=== PATIENT | female | born 1990 | race Caucasian/White ===

== ENCOUNTER 2016-07-04 07:39 | Emergency (ER) | payer OTHER ==
--- NOTE | 2016-07-04 09:46 | RAD ---
INDICATION: Right upper quadrant pain COMPARISON: None TECHNIQUE: Longitudinal and transverse scans of the right upper quadrant were obtained. Doppler interrogation of the hepatic and portal venous system was performed. FINDINGS: Liver: The liver is normal in size and echogenicity. There are no focal masses. The liver measures 12.6 cm in cephalocaudal dimension. Vessels: There is normal hepatic and portal venous flow. Bile ducts: There is no evidence of intrahepatic or extrahepatic ductal dilatation. The common duct measures 0.4 cm. Gallbladder: The sonographic appearance of the gallbladder is normal. There is no evidence of cholelithiasis, thickening of the gallbladder wall, or pericholecystic fluid. Pancreas: The visualized pancreas appears normal. Evaluation is limited due to bowel gas. Right kidney: The right kidney is normal in size and echogenicity. There are no masses or calculi. There is no evidence of hydronephrosis. The right kidney measures 11.7 x 4.5 x 6.0 cm. IVC and aorta: The aorta and superior vena cava appear normal. Fluid: There is no ascites. Other: None. IMPRESSION: NEGATIVE EXAMINATION.
--- NOTE | 2016-07-04 10:05 | UC ---
Abdominal Pain Female HPI - History of Current Complaint Chief Complaint: UCAbdominalPain Stated Complaint: ABDOMINAL PAIN Time Seen by Provider: 07/04/16 08:46 Hx Last Menstrual Period: 06/29/16 Allergies/Adverse Reactions: Allergies Allergy/AdvReac Type Severity Reaction Status Date / Time Ibuprofen Allergy Intermediate Difficulty Verified 07/04/16 07:49 Breathing Home Medications: Home Medications ALPRAZolam TAB* [Xanax TAB*] 0.5 mg PO TID PRN 07/04/16 [History Confirmed 07/04] Cholecalciferol TAB* [Vitamin D TAB*] 1,000 unit PO DAILY 07/04/16 [History Confirmed 07/04/16] Metaxalone TAB* [Skelaxin TAB*] 800 mg PO TID 07/04/16 [History Confirmed ] OLANzapine TAB* [Zyprexa 5 MG TAB*] 5 mg PO DAILY 07/04/16 [History Confirmed ] PMH/Surg Hx/FS Hx/Imm Hx Respiratory History Of: Reports: Asthma - Surgical History Surgical History: None - Social History Alcohol Use: None Substance Use Type: None Smoking Status (MU): Never Smoked Tobacco Physical Exam Vital Signs: Initial Vital Signs Temp 97.7 F 07/04/16 07:43 Pulse 76 07/04/16 07:43 Resp 14 07/04/16 07:43 BP 124/68 07/04/16 07:43 Pulse Ox 98 07/04/16 07:43 Abd Pain Female Course/Dx - Course Course Of Treatment: pt refuses to go to [facility] for evaluation. her mom works at [employer] in [place]. desires to go there. declines ambulance. D/w Dr Paniagua at [facility] signed - Differential Dx/Diagnosis Provider Diagnoses: abdominal pain of uncertain cause Discharge - Discharge Plan Condition: Stable Disposition: AGAINST MEDICAL ADVICE Referrals: Whitney Gallagher NP [Primary Care Provider] -
[2016-07-04 10:10] VITALS: BP 118/63
--- NOTE | 2016-07-04 10:15 | UC ---
Abdominal Pain Female HPI - HPI Summary HPI Summary: 26 yo female with onset of ruq abd pain radiating to back pain constant no fever anorexic no n/v/d no UTI symptoms no vag d/c or itch no dysparuenia has had [place] stools intermittently x 1 month - History of Current Complaint Chief Complaint: UCAbdominalPain Stated Complaint: ABDOMINAL PAIN Time Seen by Provider: 07/04/16 08:46 Hx Last Menstrual Period: 06/29/16 Onset/Duration: Gradual Onset, Lasting Hours Timing: Constant Severity Initially: Moderate Severity Currently: Moderate Pain Intensity: 6 Pain Scale Used: 0-10 Numeric Location: Discrete At: RUQ Radiates to: Back Aggravating Factor(s): Nothing Alleviating Factor(s): Nothing Associated Signs and Symptoms: Positive: Back Pain, Other: - anorexia Allergies/Adverse Reactions: Allergies Allergy/AdvReac Type Severity Reaction Status Date / Time Ibuprofen Allergy Intermediate Difficulty Verified 07/04/16 07:49 Breathing Home Medications: Home Medications ALPRAZolam TAB* [Xanax TAB*] 0.5 mg PO TID PRN 07/04/16 [History Confirmed 07/04] Cholecalciferol TAB* [Vitamin D TAB*] 1,000 unit PO DAILY 07/04/16 [History Confirmed 07/04/16] Metaxalone TAB* [Skelaxin TAB*] 800 mg PO TID 07/04/16 [History Confirmed ] OLANzapine TAB* [Zyprexa 5 MG TAB*] 5 mg PO DAILY 07/04/16 [History Confirmed ] PMH/Surg Hx/FS Hx/Imm Hx Previously Healthy: Yes Respiratory History Of: Reports: Asthma - Surgical History Surgical History: None - Family History Known Family History: Positive: Hypertension - Social History Alcohol Use: None Substance Use Type: None Smoking Status (MU): Never Smoked Tobacco Review of Systems Constitutional: Negative Skin: Negative Eyes: Negative ENT: Negative Respiratory: Negative Cardiovascular: Negative Gastrointestinal: Abdominal Pain Genitourinary: Negative Motor: Negative Neurovascular: Negative Musculoskeletal: Negative Neurological: Negative Psychological: Negative All Other Systems Reviewed And Are Negative: Yes Physical Exam Triage Information Reviewed: Yes Appearance: Well-Appearing, No Pain Distress, Well-Nourished Vital Signs: Initial Vital Signs Temp 97.7 F 07/04/16 07:43 Pulse 76 07/04/16 07:43 Resp 14 07/04/16 07:43 BP 124/68 07/04/16 07:43 Pulse Ox 98 07/04/16 07:43 Vital Signs Reviewed: Yes Eyes: Positive: Conjunctiva Clear ENT: Positive: Hearing grossly normal. Negative: Nasal congestion, Nasal drainage, Trismus, Muffled/hoarse voice Neck: Positive: Supple, Nontender Respiratory: Positive: Lungs clear, Normal breath sounds, No respiratory distress Cardiovascular: Positive: RRR, No Murmur Abdomen Description: Positive: No Organomegaly. Negative: Nontender, CVA Tenderness (R), CVA Tenderness (L), Distended, Hepatomegaly, McBurney's Point Tenderness, Peritoneal Signs, Pulsatile Mass, Splenomegaly Musculoskeletal: Positive: ROM Intact, No Edema Neurological: Positive: Alert Psychological Exam: Normal Skin Exam: Normal Abd Pain Female Course/Dx - Course Course Of Treatment: advised she go to ER for further work up. refused to go to [facility]. wants to go to [facility]. spoke to Dr Fili Rebolledo. Declines EMS - Differential Dx/Diagnosis Provider Diagnoses: abdominal pain of uncertain cause Discharge - Discharge Plan Condition: Stable Disposition: AGAINST MEDICAL ADVICE Referrals: Whitney Gallagher NP [Primary Care Provider] -
== END 2016-07-04 10:10 | disposition left against medical advice (07) ==
LOC: UCCORT 07:39
DX: R10.11 Right upper quadrant pain (principal); Z32.02 Encounter for pregnancy test, result negative; J45.909 Unspecified asthma, uncomplicated; Z88.6 Allergy status to analgesic agent
CPT/HCPCS: 76705; 81003; 84702; 99213; G0463

== ENCOUNTER 2016-09-09 07:27 | Emergency (ER) | payer OTHER ==
--- NOTE | 2016-09-09 07:34 | UC ---
[facility] Dental HPI - HPI Summary HPI Summary: 26 YEAR OLD PRESENTS WITH RIGHT LOWER MOLAR ABSCESS AND FACIAL SWELLING. - History of Current Complaint Stated Complaint: ORAL COMPLAINT Time Seen by Provider: 09/09/16 07:33 Hx Last Menstrual Period: 06/29/16 - Allergies/Home Medications Allergies/Adverse Reactions: Allergies Allergy/AdvReac Type Severity Reaction Status Date / Time Ibuprofen Allergy Intermediate Difficulty Verified 09/09/16 07:38 Breathing Home Medications: Home Medications Clonazepam [Clonazepam Odt] 1 mg PO BID 09/09/16 [History Confirmed 09/09/16] Dicyclomine CAP* [Bentyl CAP*] 20 mg PO QID 09/09/16 [History Confirmed 09/09/16 ] Naproxen Sodium-Diphenhydramin [Aleve PM 220-25 mg] 2 tab PO PRN 09/09/16 [ History] Omeprazole [Prilosec] 20 mg PO BID 09/09/16 [History Confirmed 09/09/16] busPIRone TAB* [Buspar TAB*] 20 mg PO DAILY 09/09/16 [History Confirmed 09/09/16 ] PMH/Surg Hx/FS Hx/Imm Hx - Surgical History Surgical History: None - Family History Known Family History: Positive: Hypertension - Social History Alcohol Use: None Substance Use Type: None Smoking Status (MU): Never Smoked Tobacco Review of Systems Constitutional: Negative Skin: Negative Eyes: Negative ENT: Dental Pain Respiratory: Negative Cardiovascular: Negative Gastrointestinal: Negative Genitourinary: Negative Motor: Negative Neurovascular: Negative Musculoskeletal: Negative Neurological: Negative Psychological: Negative All Other Systems Reviewed And Are Negative: Yes Physical Exam Triage Information Reviewed: Yes Eye Exam: Normal ENT Exam: Normal Dental: Positive: Abscess @ Neck exam: Normal Neck: Positive: 1 Respiratory Exam: Normal Cardiovascular Exam: Normal Abdominal Exam: Normal Musculoskeletal Exam: Normal Neurological Exam: Normal Psychological Exam: Normal Skin Exam: Normal Dental Complaint Course/Dx - Differential Dx/Diagnosis Provider Diagnoses: RIGHT LOWER MOLAR ABSCESS Discharge - Discharge Plan Condition: Stable Disposition: HOME Prescriptions: Acetaminophen TAB* [Tylenol TAB*] 650 mg PO Q6H PRN #100 tab PRN Reason: Pain (Dental) Amoxicillin/Clavulanate TAB* [Augmentin TAB 875*] 875 mg PO BID #20 tab Chlorhexidine MW 0.12% 473ML* [Peridex Mouth Wash 0.12%*] 473 ml MT TID PC #1 btl Patient Education Materials: Toothache (ED) Referrals: Whitney Gallagher NP [Primary Care Provider] - If Needed
[2016-09-09 07:38] VITALS: BP 118/80
== END 2016-09-09 07:53 | disposition home or self-care (01) ==
LOC: UCCORT 07:27
DX: K04.7 Periapical abscess without sinus (principal); Z88.6 Allergy status to analgesic agent
CPT/HCPCS: 99212; G0463

== ENCOUNTER 2018-06-23 09:20 | Emergency (ER) | payer OTHER ==
[2018-06-23 10:13] VITALS: BP 132/84
--- NOTE | 2018-06-23 10:14 | UC ---
General HPI - HPI Summary HPI Summary: 28 -year-old female with approximately 4-5 bouts of diarrhea per day over the past 3 days. Denies any vomiting or fever. She does not drink well water. Her family members are ill, and no travel outside the [place]. - History of Current Complaint Chief Complaint: UCGI Stated Complaint: DIARRHEA,NAUSEA, HEADACHE Time Seen by Provider: 06/23/18 10:03 Hx Obtained From: Patient Hx Last Menstrual Period: 06/23/18 Onset/Duration: Sudden Onset Timing: Intermittent Episodes Lasting: Onset Severity: Moderate Current Severity: Mild Pain Intensity: 7 Associated Signs & Symptoms: Positive: Abdominal Pain - Abdominal cramping just prior to bouts of diarrhea., Dizziness - Patient states mild dizziness at times. She has nausea so she has not been drinking very many fluids over the past 3 days., Diarrhea, Nausea - Allergy/Home Medications Allergies/Adverse Reactions: Allergies Allergy/AdvReac Type Severity Reaction Status Date / Time No Known Allergies Allergy Verified 06/23/18 10:12 Home Medications: Home Medications Atomoxetine HCl [Atomoxetine] 60 mg PO DAILY 06/23/18 [History Confirmed ] Metformin HCl 850 mg PO BID 06/23/18 [History Confirmed 06/23/18] Vortioxetine Hydrobromide [Brintellix] 10 mg PO DAILY 06/23/18 [History Confirmed 06/23/18] buPROPion HCl [Bupropion Xl] 450 mg PO DAILY 06/23/18 [History Confirmed ] PMH/Surg Hx/FS Hx/Imm Hx Previously Healthy: Yes - Surgical History Surgical History: None - Family History Known Family History: Positive: Hypertension - Social History Occupation: Employed Full-time Lives: With Family Alcohol Use: None Substance Use Type: None Smoking Status (MU): Never Smoked Tobacco Review of Systems All Other Systems Reviewed And Are Negative: Yes Gastrointestinal: Positive: Diarrhea, Nausea, Other - Abdominal cramping just prior to bouts of diarrhea however does not have any specific abdominal pain. Is Patient Immunocompromised?: No Physical Exam Triage Information Reviewed: Yes Appearance: Well-Appearing, No Pain Distress, Well-Nourished Vital Signs: Initial Vital Signs Temp 97.3 F 06/23/18 10:05 Pulse 95 06/23/18 10:05 Resp 17 06/23/18 10:05 BP 132/84 06/23/18 10:05 Pulse Ox 99 06/23/18 10:05 Vital Signs Reviewed: Yes Eye Exam: Normal ENT: Positive: Hearing grossly normal, Pharynx normal, TMs normal, Uvula midline Neck: Positive: Supple, Nontender, No Lymphadenopathy Respiratory: Positive: Lungs clear, Normal breath sounds, No respiratory distress, No accessory muscle use Cardiovascular: Positive: RRR, No Murmur, Pulses Normal, Brisk Capillary Refill Abdomen Description: Positive: Nontender, No Organomegaly, Soft. Negative: Distended, Guarding, Hepatomegaly, Splenomegaly Bowel Sounds: Positive: Present Musculoskeletal Exam: Normal Neurological Exam: Normal Psychological Exam: Normal Skin Exam: Normal Course/Dx - Course Course Of Treatment: Patient has been comfortable here and nontoxic. 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 - Diagnoses Provider Diagnosis: Viral illness Discharge - Sign-Out/Discharge Documenting (check all that apply): Patient Departure All imaging exams completed and their final reports reviewed: No Studies - Discharge Plan Condition: Fair Disposition: HOME Patient Education Materials: Acute Diarrhea (ED) Referrals: Whitney Gallagher NP [Primary Care Provider] - Additional Instructions: Increase fluids, rest, purchase Loperamide as directed. Definite follow-up with your primary care provider by Friday if you are continuing to have diarrhea. - Billing Disposition and Condition Condition: FAIR Disposition: Home - Attestation Statements Provider Attestation: I was available for consult. This patient was seen by the KAYLIE. The patient was not presented to, seen by, or examined by me. -Geraldine
== END 2018-06-23 10:29 | disposition home or self-care (01) ==
LOC: UCCORT 09:20
DX: B34.9 Viral infection, unspecified (principal)
CPT/HCPCS: 99211; G0463

== ENCOUNTER 2018-08-16 19:19 | Emergency (ER) | payer OTHER ==
--- OUTSIDE RECORDS SUMMARY | 2018-08-16 19:49 | XMS REPORT | Continuity of Care Document ---
:1990 External Reference #:[id number] Author Name Kayla Gallagher NP Address [address] [place] [address] Care Team Providers Name Role Phone Kayla Gallagher NP Primary Care Physician Unavailable Payers Date Identification Numbers Payment Provider Subscriber Effective: 2016 Policy Number: [id number] [employer] Group Number: [id number] [address] [address] Group Name: [employer] [place] [address] PayID: [id number] Onset: 2016 Policy Number: [id number] Progressive Cece J Jamel PayID: [id number] [address] [address] [place] [address] Family History Date Family Member(s) Observation Comments Father due to Accident, Motor Vehicle () Father Alcoholism Mother Good Health Children None First Brother Alcoholism First Brother Bipolar Disorder First Brother PTSD Paternal Grandmother Thyroid Disease Paternal Grandmother Cancer, Colon Maternal Grandmother Thyroid Disease Maternal Grandmother Cancer, Skin Second Maternal Aunt S.A.D. 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 [employer] Use Denies alcohol use Tobacco Use Start: Unknown Patient has never smoked Recreational Drug Use Denies Drug Use Smoking Status Reviewed: 10/08/17 Patient has never smoked Exercise Type/Frequency Exercises sporadically physical work at job Additional Info Sexual preference is men and women Allergies, Adverse Reactions, Alerts Active Allergies Reaction Severity Comments Date Ibuprofen 05/02/2015 Medications Active Medications SIG Qnty Indications Ordering Date Provider Sulfamethoxazole/Trim 1 by mouth twice a 10tabs [facility], 08/14/2018 ethoprim DS day PABLO Garza 800-160mg Tablets Fluticasone 2 sprays each 15.8units [facility], 08/14/2018 Propionate nostril 2 times PABLO Garza 50mcg/Act daily Suspension Albuterol Sulfate HFA 2 puffs every 4 54gm J45.40 [facility], 07/20/2018 hours as needed MD Yair 108(90Base) mcg/Act Aerosol Hydrocortisone apply to affected 453.600gm K64.5 [facility], 05/20/2018 2.5% areas twice a day PABLO Garza Ointment Hydrocortisone twice a day x 2 14units K64.5 [facility], 05/20/2018 Acetate weeks PABLO Garza 25mg Suppository Clonazepam 1 po three times a 90tabs F41.9 [facility], 01/12/2018 0.5mg day PABLO Garza Tablets Bupropion HCL ER (SR) 1 by mouth every 30tabs [facility], 10/28/2017 day PABLO Garza 150mg Tablets ER 12HR Bupropion HCL ER (SR) 1 by mouth twice a 60tabs F41.9 [facility], 10/20/2017 day MD Yair 150mg Tablets ER 12HR Moist Heat Pack moist heat heating [facility], 06/18/2017 Pads pad PABLO Garza Return To Work without 1units [facility]03/26/2017 Misc restrictions PABLO Garza Amphetamine-Dextroamp 1 by mouth twice a Unknown hetamine day 20mg Tablets Trintellix 1 by mouth every Unknown 10mg Tablets day Olanzapine 1 by mouth every Unknown 5mg Tablets day Dispers Metformin HCL take one tablet by Unknown 850mg mouth twice a day Tablets History Medications Fluconazole 1 by mouth july 2tabs [facility], 02/10[facility]2018 - 150mg Tablets repeat after 2 days PABLO Garza 07/23/2018 if still symptomatic Amoxicillin 1 by mouth twice a 20tabs H62.4 [facility]01/27/2018 - 875mg Tablets day 2 PABLO Garza 07/23/2018 Ofloxacin (Otic) 5 drops affected QS H62.4 [facility]01/27/2018 - 0.3% ear every day x 7 2 PABLO Garza 07/23/2018 Solution days Bupropion HCL ER 1 by mouth once a 30tabs [facility] 10/24/2017 - (Smoking Det) day PABLO Garza 10/28/2017 150mg Tablets ER 12HR Prednisone 8 tabs day 1 then 35tabs Elliott 10/08/2017 - 5mg Tablets decrease by 1 tab PABLO Garza 10/24/2017 per day x 7 days until all are gone. Nuvaring insert 1 ring 3units N92.6 Margie, 10/08/2017 - 0.12-0.015mg/24HR vaginally every 21 Navpriya, 07/23/2018 Ring days, leave in M.D. place for 3 weeks, remove, and replace with a new ring Prednisone 8 tabs day 1 then 36tabs M12.8 [facility]08/21/2017 - 5mg Tablets decrease by 1 tab 0 MD Yair 08/25/2017 per day x 7 days until all are gone. Aripiprazole 1 po qd 30tabs F33.1 [facility] 08/01/2017 - 30mg Tablets PABLO Garza 10/24/2017 Bupropion HCL ER (SR) 1 by mouth every 30tabs [facility] 08/01/2017 - 150mg day PABLO Garza 10/20/2017 Tablets ER 12HR Bupropion HCL ER (XL) 1 by mouth every 30tabs F41.9 [facility] 08/01/2017 - 300mg day PABLO Garza 10/20/2017 Tablets ER 24HR Loperamide HCL take 2 tabs at 30caps R19.7 [facility]07/22/2017 - 2mg Capsules first loose stool PABLO Garza 10/24/2017 and 1 tab fo every loose stool therafter not to exceed 16mg per 24hours Sulfamethoxazole/Trimeth 1 by mouth twice a 14tabs N30.0 [facility] 2017 - oprim DS day 0 MD Yair 07/22/2017 800-160mg Tablets Phenazopyridine HCL 1 by mouth every 8 14tabs N30.0 [facility]06/26/2017 - 200mg hours as needed 0 MD Yair 07/22/2017 Tablets Alprazolam 1-2 by mouth three 90tabs F41.9 [facility] 06/18/2017 - 0.5mg Tablets times a day as Kayla, PABLO 01/12/2018 needed Ondansetron 1 by mouth q12 hour 10tabs [facility], 06/18/2017 - 8mg Tablets as needed nausea Kayla, PABLO 10/24/2017 Dispers Bupropion HCL ER (XL) 1 by mouth every 30tabs F33.1 [facility], 05/19/2017 - 300mg day Kayla, [employer] 06/20/2017 Tablets ER 24HR Bupropion HCL ER (XL) 1 by mouth every 30tabs F41.9 [facility], 05/19/2017 - 150mg day Kayla, [employer] 08/01/2017 Tablets ER 24HR Aripiprazole 1 by mouth every 30tabs F33.1 [facility], 05/19/2017 - 20mg Tablets day Kayla, [employer] 08/01/2017 Aripiprazole take one and a half 45tabs F33.1 [facility], 05/05/2017 - 10mg Tablets tablets a day PABLO Garza 05/19/2017 Bupropion HCL ER (SR) 2 by mouth every 60tabs F33.1 [facility], 05/05/2017 - 200mg day Kayla, [employer] 05/19/2017 Tablets ER 12HR Bupropion HCL ER (XL) 1 by mouth every F33.1 [facility], 05/05/2017 - 300mg day Kayla, [employer]ER 05/05/2017 Tablets ER 24HR Bupropion HCL ER (SR) 2 by mouth every 60tabs F33.1 [facility], 03/31/2017 - 200mg day Kayla, [employer] 05/05/2017 Tablets ER 12HR Temazepam 1-2 by mouth every 60caps [facility], 03/26/2017 - 15mg Capsules night at bedtime. PABLO Garza 07/23/2018 soda dialyzer checked Bupropion HCL ER (XL) 1 by mouth every 30tabs F33.1 [facility], 03/26/2017 - 300mg day Kayla, PABLO 04/22/2017 Tablets ER 24HR Sulfamethoxazole/Trimeth 1 by mouth twice a 10tabs N92.6 [facility], 2016 - oprim DS day PABLO Garza 03/26/2017 800-160mg Tablets Phenazopyridine HCL 1 by mouth three 9tabs N92.6 [facility] 02/26/2017 - 200mg times a day PABLO Garza 03/26/2017 Tablets Metronidazole 1 applicator full 70gm Elliott 02/07/2017 - 0.75% Gel at bedtime x 5 days PABLO Garza 03/26/2017 Ketoconazole apply to affected 60gm B35.9 [facility] 02/06/2017 - 2% Cream area twice a day x PABLO Garza 03/26/2017 2 weeks Amoxicillin/Clavulanate 1 by mouth twice a 20tabs Arnaldo 12/31/2016 - Potassium day MD Ritesh 02/06/2017 875-125mg Tablets Methylprednisolone as directed dose 1pack Arnaldo 12/31/2016 - 4mg pack MD Ritesh 02/06/2017 Tablets Amoxicillin 1 by mouth twice a 20tabs J02.9 [facility] 12/24/2016 - 875mg Tablets day PABLO Garza 02/06/2017 Out Of Work today J02.9 [facility] 12/24/2016 - Misc PABLO Garza 12/31/2016 Alprazolam 1-2 three times a 90tabs F41.9 [facility] 10/14/2016 - 0.25mg Tablets day as needed PABLO Garza 06/18/2017 Bupropion HCL ER (SR) 1 by mouth at 30tabs F33.1 [facility] 10/14/2016 - 150mg bedtime PABLO Garza 03/26/2017 Tablets ER 12HR Bupropion HCL 1 by mouth once a 60tabs F33.1 [facility] 09/30/2016 - 75mg Tablets day x 1 week then PABLO Garza 10/14/2016 twice a day Vitamin D 2 by mouth every 60tabs [facility] 09/30/2016 - (Cholecalciferol) day PABLO Garza 07/23/2018 1000Unit Tablets Olanzapine 1 by mouth every 30tabs F41.9 [facility] 09/02/2016 - 20mg Tablets day PABLO Garza 09/27/2016 Dispers Buspirone HCL take two tablets by 60tabs [facility] 09/02/2016 - 10mg Tablets mouth every day PABLO Garza 09/27/2016 Buspirone HCL 1 by mouth x3 days 60tabs [facility] 08/19/2016 - 5mg Tablets then increase to 2 PABLO Garza 09/02/2016 by mouthx 3 days then continue increasing by 5 mg q 3day to max of 30mg Return To Work without 1units [facility] 08/19/2016 [facility] PABLO Garza 09/30/2016 Olanzapine 1 po qd 30tabs F41.9 [facility] 08/12/2016 - 15mg Tablets PABLO Garza 09/02/2016 Clonazepam 1 by mouth twice a 60tabs [facility] 08/12/2016 - 1mg Tablets day PABLO Garza 09/27/2016 Dispers Out Of Work from 07/18/16 to Elliott 08/12/2016 - [facility] [place] 08/19/16 PABLO Garza 09/30/2016 Xanax 1 tablet by mouth 90tabs F41.9 [facility] 07/15/2016 - 1mg Tablets three times a day PABLO Garza 08/12/2016 as needed for anxiety Lactulose take 30ml by mouth 946units Elliott 07/15/2016 - 10GM/15ML Solution once daily PABLO Garza 09/27/2016 Gas Relief 0.6ml x qid and at QS Elliott 07/15/2016 - 40mg/0.6ML Liquid bedtime PABLO Garza 09/27/2016 Dicyclomine HCL take two capsules 240caps Elliott 07/15/2016 - 10mg Capsules by mouth four times PABLO Garza 09/27/2016 a day as needed Heating Pad Moist/Dry as directed Elliott 07/06/2016 - Teodoro Size PABLO Garza 09/30/2016 Pads Ondansetron 1 by mouth q12 hour 30tabs [facility] 07/05/2016 - 8mg Tablets as needed nausea PABLO Garza 09/27/2016 Dispers Omeprazole 1 by mouth twice a 60caps [facility] 07/05/2016 - 20mg Capsules DR day PABLO Garza 09/27/2016 Xanax 1 tablet by mouth 90tabs F41.9 [facility], 07/01/2016 - 1mg Tablets three times a day PABLO Garza 07/15/2016 as needed for anxiety Vitamin D take 1 capsule by 12caps Tere 06/26/2016 - (Ergocalciferol) mouth every week MD Lesley 09/27/2016 02843Hgcm Capsules Olanzapine F41.9 [facility] 06/26/2016 - 15mg Tablets Kayla, [employer] 06/26/2016 Olanzapine 1 tablet by mouth 30tabs F41.9 [facility], 06/26/2016 - 10mg Tablets nightly Kayla, [employer] 08/12/2016 Lamotrigine 2 by mouth twice a 60tabs [facility], 04/29/2016 - 25mg Tablets day Kayla, [employer] 06/26/2016 Lamotrigine 1 tablet every day 30tabs [facility], 04/15/2016 - 25mg Tablets Kayla, [employer] 04/29/2016 Xanax 1 by mouth three 90tabs F41.9 [facility], 04/05/2016 - 0.5mg Tablets times a day as Kayla, [employer] 07/01/2016 needed Xanax 1 by mouth three 30tabs F41.9 [facility], 03/29/2016 - 0.25mg Tablets times a day as Kayla, [employer] 10/14/2016 needed Fluoxetine HCL 1 by mouth every 90tabs [facility], 03/29/2016 - 60mg Tablets day Kayla, [employer] 04/15/2016 Fluoxetine HCL (PMDD) 1 by mouth every 30caps [facility], 03/25/2016 - 20mg day Kayla, [employer]ER 03/29/2016 Capsules Clonazepam 1 by mouth twice a 60tabs [facility], 03/23/2016 - 0.25mg Tablets day as needed for Kayla, [employer] 03/23/2016 Dispers anxiety Fluoxetine HCL 1 by mouth every 30caps [facility], 03/23/2016 - 40mg Capsules day Kayla, [employer] 03/29/2016 Metaxalone 1 by mouth three 90tabs M54.6 [facility], 02/07/2016 - 800mg Tablets times a day PABLO Garza 03/13/2016 Prednisone 3 by mouth every 15tabs M54.6 [facility], 02/07/2016 - 20mg Tablets day x 5 days PABLO Garza 03/13/2016 Abilify 1 by mouth every 45tabs F41.9 [facility], 11/16/2015 - 10mg Tablets day PABLO Garza 04/05/2016 Seroquel 1 by mouth every 30tabs [facility], 10/27/2015 - 25mg Tablets day PABLO Garza 01/15/2016 Sulfamethoxazole/Trimeth 1 by mouth twice a 10tabs N30.0 [facility], 2015 - oprim DS day 0 PABLO Garza 01/15/2016 800-160mg Tablets Vitamin D take 1 capsule by 24caps Elliott, 08/23/2015 - (Ergocalciferol) mouth every week PABLO Garza 06/26/2016 [id number] Capsules Azithromycin 2 by mouth every 6tabs [facility], 08/03/2015 - 250mg Tablets day x 1 day then 1 PABLO Garza 08/15/2015 by mouth every day x 4 days Amoxicillin 1 by mouth twice a 14tabs J02.9 [facility], 07/06/2015 - 875mg Tablets day PABLO Garza 08/03/2015 Cymbalta 1 by mouth every 30caps F41.9 [facility], 07/04/2015 - 60mg Caps DR Cesia Garza NP 03/23/2016 Cymbalta 2 by mouth every 60caps F41.9 [facility], 05/30/2015 - 20mg Caps DR Cesia Garza NP 07/04/2015 Cymbalta 1 by mouth every 30caps F41.9 [facility], 05/16/2015 - 30mg Caps DR Cesia Garza NP 05/30/2015 Ondansetron HCL 1 by mouth q12 60tabs F41.9 [facility], 05/16/2015 - 8mg Tablets hours as needed PABLO Garza 01/15/2016 Work out of work 05/16/15 F41.9 [facility], 05/16/2015 - PABLO Garza 08/15/2015 Proventil HFA inhale 2 puffs by 1units Elliott, 05/02/2015 - 108(90Base) mouth every 4 hours PABLO Garza 09/27/2016 mcg/Act Aerosol as needed Naproxen take one tablet by 60tabs Elliott, 05/02/2015 - 500mg Tablets mouth twice a day PABLO Garza 01/15/2016 as needed Cymbalta 1 by mouth every 30caps F41.9 [facility], 05/02/2015 - 20mg Caps DR Cesia Garza NP 05/16/2015 Depo-Provera 150mg intramuscular Unknown - 150mg/ml every 3 months 10/24/2017 Suspension Klonopin F41.9 Unknown - 0.5mg Tablets 01/12/2018 Prednisone 1 by mouth every Unknown - 5mg Tablets day 08/14/2018 Medications Administered in Office Medication SIG Qnty Indications Ordering Provider Date Albuterol Up To 2.5mg & Yair Gallagher MD 07/21/2018 Ipatropium [place] Up To 0.5mg Non-Compd Injection Medroxyprogesterone Acetate, 1MG Nurse Schedule Loc 8 06/23/2017 - Use 150MG For Depo-Provera Injection Medroxyprogesterone Acetate, 1MG Kayla Gallagher, PABLO 12/24/2016 - Use 150MG For Depo-Provera Injection Medroxyprogesterone Acetate, 1MG Nurse Schedule Loc 8 10/03/2016 - Use 150MG For Depo-Provera Injection Medroxyprogesterone Acetate, 1MG Kayla Gallagher, PABLO 06/26/2016 - Use 150MG For Depo-Provera Injection Medroxyprogesterone Acetate, 1MG Kayla Gallagher, PABLO 01/15/2016 - Use 150MG For Depo-Provera Injection Immunizations CPT Code Status Date Vaccine Lot # [id number] Given 03/18/2018 Tdap (Adacel) Ages 7 And Above Only [id number] Given 05/02/2015 Influenza Vac, Quadrivalent, Split, 0.5mL [place] [id number] Given 03/10/2008 Tdap (Adacel) Ages 7 And Above Only [id number] Given 08/11/2007 Gardasil-9 (HPV) Nonavalent 2-[place] [address] Given 05/18/2007 Gardasil-9 (HPV) Nonavalent 2-[place] [address] Given 02/24/2007 Gardasil-9 (HPV) Nonavalent 2-[place] [id number] Refused 08/14/2018 Pneumococcal 23 Immunization Adult Or Immunosuppressed Patient 52328 Refused 01/27/2018 Influenza Vac, Quadrivalent, Split, 0.5mL [place], [place] Use [id number] Refused 10/28/2016 Afluria Or Fluvirin Flu Vac Intramuscular 49111 Refused 07/05/2016 Afluria Or Fluvirin Flu Vac Intramuscular Vital Signs Date Vital Result Comment 08/14/2018 4:10pm Weight 266.00 lb BP Systolic 120 mmHg BP Diastolic 74 mmHg Urine Dipstick - Blood 2+ Urine Dipstick - Protein neg pos nit Urine Dipstick - Glucose neg Urine Dipstick - Leukocytes neg 07/21/2018 3:36pm Body Temperature 98.0 F Weight 266.00 lb Heart Rate 101 /min BP Systolic 130 mmHg BP Diastolic 90 mmHg Respiratory Rate 14 /min Height 67 inches 5'7" O2 % BldC Oximetry 95 % BMI (Body Mass Index) 41.7 kg/m2 07/20/2018 3:53pm Body Temperature 97.7 F Weight 267.00 lb Heart Rate 94 /min BP Systolic 128 mmHg BP Diastolic 74 mmHg Respiratory Rate 17 /min Height 66 inches 5'6" O2 % BldC Oximetry 96 % BMI (Body Mass Index) 43.1 kg/m2 05/20/2018 3:41pm Body Temperature 98.1 F Weight 252.00 lb Heart Rate 109 /min BP Systolic 126 mmHg BP Diastolic 80 mmHg Respiratory Rate 17 /min Height 65 inches 5'5" O2 % BldC Oximetry 98 % BMI (Body Mass Index) 41.9 kg/m2 03/18/2018 3:04pm Body Temperature 97.5 F Weight 253.00 lb Heart Rate 90 /min BP Systolic 122 mmHg BP Diastolic 78 mmHg Respiratory Rate 17 /min Height 65 inches 5'5" BMI (Body Mass Index) 42.1 kg/m2 01/27/2018 4:36pm Body Temperature 98.0 F Weight 245.00 lb Heart Rate 108 /min BP Systolic 140 mmHg BP Diastolic 80 mmHg Respiratory Rate 17 /min Height 65 inches 5'5" BMI (Body Mass Index) 40.8 kg/m2 10/24/2017 11:28am Body Temperature 97.9 F Weight 241.00 lb Heart Rate 83 /min BP Systolic 126 mmHg BP Diastolic 80 mmHg Respiratory Rate 16 /min O2 % BldC Oximetry 98 % 10/08/2017 11:53am Weight 245.00 lb BP Systolic 126 mmHg BP Diastolic 82 mmHg Height 65.25 inches 5'5.25" BMI (Body Mass Index) 40.5 kg/m2 Last Menstrual Period [id number] 08/25/2017 6:13pm Body Temperature 99.1 F Weight 232.00 lb BP Systolic 128 mmHg BP Diastolic 74 mmHg Height 65.25 inches 5'5.25" BMI (Body Mass Index) 38.3 kg/m2 08/21/2017 6:50pm Body Temperature 99.4 F Weight 234.00 lb Heart Rate 112 /min BP Systolic 118 mmHg BP Diastolic 76 mmHg Height 65.25 inches 5'5.25" O2 % BldC Oximetry 98 % BMI (Body Mass Index) 38.6 kg/m2 08/01/2017 10:54am Weight 234.00 lb Heart Rate 84 /min BP Systolic 118 mmHg BP Diastolic 78 mmHg Height 65.25 inches 5'5.25" BMI (Body Mass Index) 38.6 kg/m2 07/22/2017 3:51pm Body Temperature 98.8 F Weight 240.00 lb BP Systolic 138 mmHg BP Diastolic 76 mmHg Height 65.25 inches 5'5.25" BMI (Body Mass Index) 39.6 kg/m2 06/26/2017 6:30pm Body Temperature 99.2 F Weight 234.00 lb BP Systolic 132 mmHg BP Diastolic 80 mmHg Height 65.25 inches 5'5.25" BMI (Body Mass Index) 38.6 kg/m2 Urine Dipstick - Blood 3+ Urine Dipstick - Protein NEGATIVE Urine Dipstick - Glucose NEGATIVE Urine Dipstick - Leukocytes 3+ 06/20/2017 12:25pm Weight 236.00 lb BP Systolic 132 mmHg BP Diastolic 82 mmHg Height 65.25 inches 5'5.25" BMI (Body Mass Index) 39.0 kg/m2 Last Menstrual Period [id number] 06/18/2017 1:30pm Body Temperature 98.9 F Weight 240.00 lb Heart Rate 129 /min BP Systolic 142 mmHg BP Diastolic 92 mmHg Height 65.25 inches 5'5.25" BMI (Body Mass Index) 39.6 kg/m2 Urine Dipstick - Blood 3+ Urine Dipstick - Protein NEGATIVE Urine Dipstick - Glucose NEGATIVE Urine Dipstick - Leukocytes NEGATIVE 05/19/2017 6:15pm Weight 234.00 lb BP Systolic 128 mmHg BP Diastolic 76 mmHg Height 65.25 inches 5'5.25" BMI (Body Mass Index) 38.6 kg/m2 05/05/2017 7:09pm Weight 239.00 lb BP Systolic 116 mmHg BP Diastolic 78 mmHg Height 65.25 inches 5'5.25" BMI (Body Mass Index) 39.5 kg/m2 04/22/2017 11:16am Weight 239.00 lb BP Systolic 128 mmHg BP Diastolic 82 mmHg Height 65.25 inches 5'5.25" BMI (Body Mass Index) 39.5 kg/m2 03/31/2017 4:55pm Weight 240.00 lb BP Systolic 142 mmHg BP Diastolic 86 mmHg Height 65.25 inches 5'5.25" BMI (Body Mass Index) 39.6 kg/m2 03/26/2017 3:20pm Weight 236.00 lb BP Systolic 128 mmHg BP Diastolic 82 mmHg Height 65.25 inches 5'5.25" BMI (Body Mass Index) 39.0 kg/m2 02/26/2017 2:10pm Body Temperature 99.5 F Weight 232.00 lb BP Systolic 122 mmHg BP Diastolic 74 mmHg Height 65.25 inches 5'5.25" BMI (Body Mass Index) 38.3 kg/m2 02/06/2017 11:35am Weight 235.00 lb BP Systolic 124 mmHg BP Diastolic 80 mmHg Height 65.25 inches 5'5.25" BMI (Body Mass Index) 38.8 kg/m2 Urine Dipstick - Blood NEGATIVE Urine Dipstick - Protein NEGATIVE Urine Dipstick - Glucose NEGATIVE Urine Dipstick - Leukocytes NEGATIVE 12/31/2016 8:16am Body Temperature 98.1 F Weight 229.38 lb Heart Rate 101 /min BP Systolic 134 mmHg BP Diastolic 74 mmHg Height 65.25 inches 5'5.25" O2 % BldC Oximetry 99 % BMI (Body Mass Index) 37.9 kg/m2 12/24/2016 10:06am Body Temperature 98.8 F Hcg negative Weight 227.00 lb Heart Rate 70 /min BP Systolic 120 mmHg BP Diastolic 90 mmHg Height 65.25 inches 5'5.25" BMI (Body Mass Index) 37.5 kg/m2 10/28/2016 5:07pm Body Temperature 98.6 F Heart Rate 60 /min BP Systolic 120 mmHg BP Diastolic 60 mmHg Height 65.25 inches 5'5.25" 10/14/2016 4:46pm Weight 234.00 lb BP Systolic 124 mmHg BP Diastolic 80 mmHg Height 65.25 inches 5'5.25" BMI (Body Mass Index) 38.6 kg/m2 09/30/2016 6:59pm Weight 243.00 lb BP Systolic 128 mmHg BP Diastolic 84 mmHg Height 65.25 inches 5'5.25" BMI (Body Mass Index) 40.1 kg/m2 09/27/2016 4:15pm Weight 243.00 lb Heart Rate 76 /min BP Systolic 118 mmHg BP Diastolic 74 mmHg Height 65.25 inches 5'5.25" BMI (Body Mass Index) 40.1 kg/m2 09/02/2016 4:21pm Body Temperature 99.2 F Heart Rate 88 /min BP Systolic 130 mmHg BP Diastolic 70 mmHg Height 65.25 inches 5'5.25" 08/19/2016 2:30pm Body Temperature 98.5 F Heart Rate 84 /min BP Systolic 114 mmHg BP Diastolic 70 mmHg Height 65.25 inches 5'5.25" 08/12/2016 2:21pm Body Temperature 99.1 F Weight 241.00 lb Heart Rate 64 /min BP Systolic 120 mmHg BP Diastolic 80 mmHg Height 65.25 inches 5'5.25" BMI (Body Mass Index) 39.8 kg/m2 07/15/2016 1:40pm Body Temperature 99.2 F Weight 234.00 lb BP Systolic 142 mmHg BP Diastolic 986 mmHg Height 65.25 inches 5'5.25" BMI (Body Mass Index) 38.6 kg/m2 07/06/2016 10:31am Weight 232.00 lb BP Systolic 112 mmHg BP Diastolic 74 mmHg Height 65.25 inches 5'5.25" BMI (Body Mass Index) 38.3 kg/m2 07/05/2016 11:42am Body Temperature 98.3 F Weight 232.00 lb Heart Rate 84 /min BP Systolic 120 mmHg BP Diastolic 74 mmHg BP Systolic Lying Down 108 mmHg p 64 BP Diastolic Lying Down 86 mmHg p 64 BP Systolic Sitting 124 mmHg p 76 BP Diastolic Sitting 82 mmHg p 76 BP Systolic Standing 110 mmHg p 80 BP Diastolic Standing 72 mmHg p 80 Height 65.25 inches 5'5.25" BMI (Body Mass Index) 38.3 kg/m2 07/01/2016 6:42pm Weight 224.00 lb BP Systolic 132 mmHg BP Diastolic 84 mmHg Height 65.25 inches 5'5.25" BMI (Body Mass Index) 37.0 kg/m2 06/26/2016 4:13pm Body Temperature 98.6 F Weight 227.00 lb Heart Rate 72 /min BP Systolic 120 mmHg BP Diastolic 78 mmHg Height 65.25 inches 5'5.25" BMI (Body Mass Index) 37.5 kg/m2 06/26/2016 1:54pm Weight 227.00 lb Heart Rate 80 /min BP Systolic 126 mmHg BP Diastolic 76 mmHg Height 65.25 inches 5'5.25" BMI (Body Mass Index) 37.5 kg/m2 04/29/2016 6:50pm Weight 226.00 lb BP Systolic 126 mmHg BP Diastolic 70 mmHg Height 65.25 inches 5'5.25" BMI (Body Mass Index) 37.3 kg/m2 04/05/2016 10:54am Weight 230.00 lb BP Systolic 116 mmHg BP Diastolic 74 mmHg Height 65.25 inches 5'5.25" BMI (Body Mass Index) 38.0 kg/m2 03/29/2016 11:23am Weight 228.00 lb BP Systolic 122 mmHg BP Diastolic 84 mmHg Height 65.25 inches 5'5.25" BMI (Body Mass Index) 37.6 kg/m2 03/23/2016 9:04am Weight 227.00 lb BP Systolic 122 mmHg BP Diastolic 78 mmHg Height 65.25 inches 5'5.25" BMI (Body Mass Index) 37.5 kg/m2 03/08/2016 4:00pm Body Temperature 98.4 F Weight 225.00 lb BP Systolic 120 mmHg BP Diastolic 64 mmHg Height 65.25 inches 5'5.25" BMI (Body Mass Index) 37.2 kg/m2 02/07/2016 4:26pm Weight 225.00 lb BP Systolic 122 mmHg BP Diastolic 84 mmHg Height 65.25 inches 5'5.25" BMI (Body Mass Index) 37.2 kg/m2 01/15/2016 4:16pm Weight 204.00 lb BP Systolic 122 mmHg BP Diastolic 78 mmHg Height 65.25 inches 5'5.25" BMI (Body Mass Index) 33.7 kg/m2 11/16/2015 4:25pm Body Temperature 97.7 F Weight 202.00 lb BP Systolic 120 mmHg BP Diastolic 72 mmHg Height 65.25 inches 5'5.25" BMI (Body Mass Index) 33.4 kg/m2 10/27/2015 4:17pm Body Temperature 97.9 F Weight 202.00 lb BP Systolic 120 mmHg BP Diastolic 76 mmHg Height 65.25 inches 5'5.25" BMI (Body Mass Index) 33.4 kg/m2 Urine Dipstick - Blood NEGATIVE Urine Dipstick - Protein TRACE Urine Dipstick - Glucose NEGATIVE Urine Dipstick - Leukocytes 2+ 10/18/2015 1:20pm Body Temperature 97.6 F Weight 202.00 lb BP Systolic 120 mmHg BP Diastolic 72 mmHg Height 65.25 inches 5'5.25" BMI (Body Mass Index) 33.4 kg/m2 08/15/2015 12:10pm Body Temperature 97.9 F Weight 205.00 lb Heart Rate 76 /min BP Systolic 126 mmHg BP Diastolic 64 mmHg Height 65.25 inches 5'5.25" BMI (Body Mass Index) 33.8 kg/m2 08/03/2015 11:42am Body Temperature 98.3 F Weight 200.00 lb BP Systolic 100 mmHg BP Diastolic 72 mmHg Height 65.25 inches 5'5.25" BMI (Body Mass Index) 33.0 kg/m2 07/06/2015 11:30am Body Temperature 97.8 F Weight 204.00 lb BP Systolic 110 mmHg BP Diastolic 70 mmHg Height 65.50 inches 5'5.50" BMI (Body Mass Index) 33.4 kg/m2 07/04/2015 10:56am Body Temperature 97.8 F Weight 207.00 lb Heart Rate 76 /min BP Systolic 124 mmHg BP Diastolic 84 mmHg Height 65.25 inches 5'5.25" BMI (Body Mass Index) 34.2 kg/m2 06/13/2015 11:32am Body Temperature 98.0 F Weight 206.00 lb Heart Rate 80 /min Height 65.25 inches 5'5.25" BMI (Body Mass Index) 34.0 kg/m2 05/30/2015 11:43am Body Temperature 99.1 F Weight 202.00 lb Heart Rate 72 /min BP Systolic 112 mmHg BP Diastolic 82 mmHg Height 65.25 inches 5'5.25" BMI (Body Mass Index) 33.4 kg/m2 05/16/2015 11:34am Body Temperature 97.6 F Weight 204.00 lb BP Systolic 120 mmHg BP Diastolic 72 mmHg Height 65.25 inches 5'5.25" BMI (Body Mass Index) 33.7 kg/m2 05/02/2015 12:26pm Body Temperature 98.4 F Weight 212.00 lb BP Systolic 130 mmHg BP Diastolic 70 mmHg Height 65.25 inches 5'5.25" BMI (Body Mass Index) 35.0 kg/m2 Urine Dipstick - Blood NEGATIVE Urine Dipstick - Protein NEGATIVE Urine Dipstick - Glucose NEGATIVE Urine Dipstick - Leukocytes NEGATIVE Left ear audiology results R Right ear audiology results R Results Test Date Facility Test Result H/L Range Note Laboratory test finding 08/14/2018 [facility] Throat Culture <pending> Laboratory test finding 08/14/2018 [facility] Hemoglobin A1c <pending> Magnesium <pending> Free T4 <pending> Triiodothyronin,Free-FCMG <pending> TSH <pending> Vit D 25Oh <pending> Prolactin <pending> Laboratory test finding 08/14/2018 [facility] #F# Thyroxine (Total T4) < pending> T3 Uptake-RL <pending> Laboratory test 08/14/2018 [facility] Urine Culture <pending> finding Laboratory test 07/23/2018 Done [facility] 1 Preg Urine Negative Negative finding (In-House) Laboratory test 05/20/2018 [facility] 1 finding [phone] [facility] <SEE NOTE> Affirm 05/20/2018 [facility] Trichomonas Negative Negative Vaginalis Gardnerella Vaginalis Negative Negative Yesenia Species Negative Negative Chlamydia & GC, Dna-FCMG 05/20/2018 [facility] Chlamydia NOT DETECTED Not Detected GC NOT DETECTED Not Detected Laboratory test finding 05/20/2018 [facility] Pap SEE NOTE 2 Laboratory test finding 10/08/2017 [facility] TSH 2.11 uIU/mL 0.35-4.94 Laboratory test finding 08/29/2017 [facility] Monospot Negative Negative Laboratory test finding 08/29/2017 [facility] Ebv Vca Igg POSITIVE (Neg) 3 Ebv Vca Igm NEGATIVE (Neg) 4 CBC with Auto Diff-fcmg 08/25/2017 [facility] WBC 11.4 K/uL High 4.1-11.0 RBC 4.60 M/uL 4.00-5.40 Hemoglobin 13.4 gm/dL 12.0-16.0 Hematocrit 40.1 % 36.0-47.0 MCV 87.3 fL 80.0-97.0 MCH 29.2 pg 27.0-32.0 MCHC 33.4 g/dL 32.0-36.0 RDW 13.3 % 11.5-14.5 PLT Count 299 K/ul 140-400 MPV 8.4 FL 7.1-10.7 Neutrophil 68.6 % 35.0-75.0 Lymphocyte 20.7 % 16.0-52.0 Monocyte 7.6 % 2.0-10.0 Eosinophil 2.5 % 0.0-5.0 Basophil 0.6 % 0.0-4.0 Abs Neutrophils 7.8 K/uL 2.1-8.0 Abs Lymphocytes 2.4 K/uL 0.8-5.5 Abs Monocytes 0.9 K/uL 0.1-1.0 Abs Eosinophils 0.3 K/uL 0.0-0.5 Abs Basophils 0.1 K/uL 0.0-0.3 Laboratory test finding 08/25/2017 [facility] Free T4 1.07 ng/dL 0.70-1.48 T3,Free 2.75 pg/mL 1.71-3.71 Reflex Manual Differential 08/21/2017 [facility] Neutrophils 47 % 35-75 5 Band 0 % 0-11 Lymphocytes 34 % 16-52 Atypical Lymphs 1 % 0-5 Monocytes 14 % High 0-8 Eosinophils 3 % 0-5 Basophils 1 % 0-4 Abs Neutrophils# 5.3 K/ul 1.8-7.7 Abs Lymphocytes# 3.8 K/ul 1.2-4.8 Abs Monocytes# 1.6 K/ul High 0.0-0.8 Abs Eosinophils# 0.3 K/ul 0.0-0.5 Abs Basophils# 0.1 K/ul 0.0-0.3 Abs BandCells# 0.0 K/ul 0.0-1.2 Abs Atypical Lymphocytes# 0.1 K/ul 0.0-0.5 Platelet Estimate NORMAL Normal RBC Morphology NORMAL Normal Lyme Igm/Igg AB -RL 08/21/2017 [facility] Lyme Igm/Igg AB @ NEGATIVE (Neg) 6 Rosangela Screen With 08/21/2017 [facility] Rosangela Screen NEGATIVE Negative Reflex-FCMG dsDNA IgG 0.80 Negative 7 Arthritis Panel-FCMG 08/21/2017 [facility] Rheumatoid Factor <10.0 IU/mL 0.0-10.0 Esr 20 mm/hr 0-20 CRP-High 2.97 mg/L 0.00-9.90 8 Uric Acid 4.7 mg/dL 2.6-7.6 Laboratory test finding 08/21/2017 [facility] TSH 5.30 uIU/mL High 0.35- 4.94 CBC with Auto Diff-fcmg 08/21/2017 [facility] WBC 11.2 K/uL High 4.1-11.0 RBC 4.74 M/uL 4.00-5.40 Hemoglobin 14.1 gm/dL 12.0-16.0 Hematocrit 40.9 % 36.0-47.0 MCV 86.4 fL 80.0-97.0 MCH 29.8 pg 27.0-32.0 MCHC 34.5 g/dL 32.0-36.0 RDW 13.3 % 11.5-14.5 PLT Count 294 K/ul 140-400 MPV 9.1 FL 7.1-10.7 Comprehensive Met Panel-FCMG 08/21/2017 [facility] Sodium 139 mmol/L 135- 146 9 Potassium 4.3 mmol/L 3.5-5.2 Chloride# 107 mmol/L 97-110 10 Carbon Dioxide 21 mmol/L Low 24-34 Glucose 85 mg/dL 70-105 BUN 14 mg/dL 6-26 Creatinine 0.8 mg/dL 0.5-1.4 Calcium 9.6 mg/dL 8.5-10.2 Total Protein 7.4 g/dL 6.0-8.0 Albumin 4.5 g/dL 3.6-4.9 Globulin 2.9 g/dL 2.0-3.5 A/G Ratio 1.6 Ratio 1.0-2.2 Total Bilirubin 0.5 mg/dL 0.1-1.3 Alkaline Phosphatase 66 U/L 24-140 Alt 26 U/L 3-42 Ast 18 U/L 8-42 Sachi Egfr >60 >60 11 Non Sachi Egfr >60 >60 12 Anion Gap 11 mmol/L 5-15 13 Laboratory test 07/14/2017 [facility] Urine SPECIMEN DESCRI> 14 finding [phone] Culture Laboratory test 06/26/2017 [facility] Urine Microbiology res Abnormal 15 finding Culture <SEE NOTE> Laboratory test 06/20/2017 [facility] Urine Microbiology res 16 finding Culture <SEE NOTE> CBC with Auto 06/20/2017 [facility] WBC 8.4 K/uL 4.1- Diff-fcmg 11.0 RBC 4.83 M/uL 4.00-5.40 Hemoglobin 14.5 gm/dL 12.0-16.0 Hematocrit 41.9 % 36.0-47.0 MCV 86.7 fL 80.0-97.0 MCH 30.1 pg 27.0-32.0 MCHC 34.7 g/dL 32.0-36.0 RDW 13.2 % 11.5-14.5 PLT Count 287 K/ul 140-400 MPV 7.6 FL 7.1-10.7 Neutrophil 59.7 % 35.0-75.0 Lymphocyte 26.6 % 16.0-52.0 Monocyte 10.0 % 2.0-10.0 Eosinophil 3.1 % 0.0-5.0 Basophil 0.6 % 0.0-4.0 Abs Neutrophils 5.0 K/uL 2.1-8.0 Abs Lymphocytes 2.2 K/uL 0.8-5.5 Abs Monocytes 0.8 K/uL 0.1-1.0 Abs Eosinophils 0.3 K/uL 0.0-0.5 Abs Basophils 0.1 K/uL 0.0-0.3 1 Urinalysis DIP (In-House) 06/20/2017 Done [facility] Z#Color yellow Z#Appearance clear Urine,Leukocytes neg Nitrite neg Urine,Protein neg Z#Blood, Urine positive Z#Ketones Urine neg Z#Glu Urine positive Affirm 06/18/2017 [facility] Trichomonas Vaginalis Negative Negative Gardnerella Vaginalis Negative Negative Yesenia Species Negative Negative GC/Chlamydia By Dna 06/18/2017 [facility] Chlamydia by Dna NEGATIVE Negative Probe Probe GC by Dna Probe NEGATIVE Negative Laboratory test 06/18/2017 [facility] Pap SEE NOTE 17 finding Laboratory test 06/18/2017 [facility] Urine Culture Microbiology res 18 finding <SEE NOTE> Laboratory test 06/18/2017 [facility] HPV [facility] Allia 19 finding [phone] <SEE NOTE> Laboratory test 04/22/2017 [facility] Urine Culture Microbiology res 20 finding <SEE NOTE> Laboratory test 02/26/2017 [facility] Urine Culture Microbiology res Abnormal 21 finding <SEE NOTE> Esr 22 mm/hr High 0-20 Ebv Evaluation -RL 02/06/2017 [facility] Ebv Vca Igg @ POSITIVE (Neg) 22, 23 Ebv Vca Igm @ NEGATIVE (Neg) Ebv Early Ag Igg @ NEGATIVE (Neg) Ebv Nuclear Ag Igg @ POSITIVE (Neg) 24 Rosangela Screen With Reflex-FCMG 02/06/2017 [facility] Rosangela Screen NEGATIVE 25 dsDNA IgG 0.70 0.00-9.00 26 Affirm 02/06/2017 [facility] Trichomonas Vaginalis Negative Negative Gardnerella Vaginalis Positive Abnormal Negative Yesenia Species Negative Negative Basic (BMP) 12/24/2016 [facility] Sodium 143 mmol/L 135-146 27 Potassium 4.1 mmol/L 3.5-5.2 Chloride# 106 mmol/L 97-110 28 Carbon Dioxide 27 mmol/L 24-34 Glucose 72 mg/dL 70-105 Creatinine 0.8 mg/dL 0.5-1.4 Calcium 10.0 mg/dL 8.5-10.2 Non Sachi Egfr >60 >60 29 Sachi Egfr >60 >60 30 Anion Gap 10 mmol/L 7-16 31 BUN 14 mg/dL 6-26 CBC With Auto Diff 12/24/2016 [facility] WBC 8.9 K/uL 4.1-11.0 RBC 4.86 M/uL 4.00-5.40 Hemoglobin 14.3 gm/dL 12.0-16.0 Hematocrit 42.3 % 36.0-47.0 MCV 87.0 fL 80.0-97.0 MCH 29.4 pg 27.0-32.0 MCHC 33.8 g/dL 32.0-36.0 RDW 13.3 % 11.5-14.5 PLT Count 317 K/ul 140-400 MPV 7.6 FL 7.1-10.7 Neutrophil 67.3 % 35.0-75.0 Lymphocyte 18.5 % 16.0-52.0 Monocyte 10.3 % High 2.0-10.0 Eosinophil 3.3 % 0.0-5.0 Basophil 0.6 % 0.0-4.0 Abs Neutrophils 6.0 K/uL 2.1-8.0 Abs Lymphocytes 1.6 K/uL 0.8-5.5 Abs Monocytes 0.9 K/uL 0.1-1.0 Abs Eosinophils 0.3 K/uL 0.0-0.5 Abs Basophils 0.0 K/uL 0.0-0.3 Laboratory test 12/24/2016 [facility] Throat Culture Microbiology res <SEE 32 finding NOTE> TSH 1.57 uIU/mL 0.35-4.94 Laboratory test 09/27/2016 [facility] Free Thyroxine 1.40 ng/dL (0.76- 1.46) finding [phone] @ TSH,Ultrasensitive @ 0.286 mIU/L Low (0.360-4.170) 25 Hydroxy Vit D @ 34 ng/mL (31-100) 33 Laboratory test 08/12/2016 [facility] CRP (C-Reactive) 0.97 mg/dL High 0.00- 0.75 34 finding Celiac Disease 08/12/2016 [facility] Celikey (tTG) IgA Negative Negative Panel Celikey (tTG) IgG Negative Negative deamidated Gliadin IgA Negative Negative deamidated Gliadin IgG Negative Negative Laboratory test 07/06/2016 [facility] Crypto/Giard SPECIMEN 35 finding [phone] Antigen DESCRI> Laboratory test 07/06/2016 [facility] Enteric Pathogens SPECIMEN 36 finding [phone] By PCR DESCRI> Stool Panel 07/06/2016 [facility] Giard/Cryptosp Exam SPECIMEN 37 [phone] DESCRI> C Diff Toxin B PCR 07/06/2016 [facility] Specimen STOOL Stool [phone] Description C Diff Toxin B NEGATIVE (Neg) 027 Nap1 B1 NEGATIVE (Neg) Comment NOTE: IF REFLEX <SEE NOTE> 38 Lactoferrin,Fecal 07/06/2016 [facility] Lactoferrin, NEGATIVE (Neg) 39 [phone] Fecal Laboratory test 07/05/2016 [facility] TSH 1.25 uIU/mL 0.35-4.9 40 finding 4 Amylase 37 U/L 29-103 Lipase 19 U/L 11-82 Basic (BMP) 07/01/2016 [facility] Sodium 138 mmol/L 135-146 41 Potassium 5.0 mmol/L 3.5-5.2 Chloride# 108 mmol/L 97-110 42 Carbon Dioxide 19 mmol/L Low 24-34 Glucose 84 mg/dL 70-105 BUN 25 mg/dL 6-26 Creatinine 0.7 mg/dL 0.5-1.4 Calcium 9.6 mg/dL 8.5-10.2 Non Sachi Egfr >60 >60 43 Sachi Egfr >60 >60 44 Anion Gap 16 mmol/L 7-16 45 Hepatic Panel (LFT) 07/01/2016 [facility] Total Protein 7.2 g/dL 6.0-8.0 Albumin 4.5 g/dL 3.6-4.9 Total Bilirubin 0.4 mg/dL 0.1-1.3 Direct Bilirubin 0.1 mg/dL 0.0-0.4 Alkaline Phosphatase 52 U/L 24-140 Alt 23 U/L 3-42 Ast 22 U/L 8-42 Laboratory 06/26/2016 [facility] Vit D,25 25 ng/mL Low 31-100 46 test finding Hydroxy Laboratory 03/29/2016 [facility] Vit D,25 29 ng/mL Low 31-100 47 test finding Hydroxy Laboratory 10/27/2015 [facility] Urine Microbiology res Abnormal 48, 49 test finding Culture <SEE NOTE> Laboratory 10/18/2015 [facility] Lyme NEGATIVE (Neg) 50, 51 test finding Igm/Igg AB Laboratory 10/18/2015 [facility] TSH 1.77 uIU/mL 0.35-4.94 52 test finding Esr 5 mm/hr 0-20 CRP-High 1.01 mg/L 0.00-9.90 53 Rosangela Screen With Reflex-FCMG 10/18/2015 [facility] Rosangela Screen NEGATIVE dsDNA IgG NEGATIVE Laboratory test finding 08/15/2015 [facility] Vitamin B12 292 pg/mL 180- 914 54 Vit D,25 Hydroxy 30 ng/mL Low 31-100 Iron Panel 08/15/2015 [facility] Iron, Total 102 g/dL 50-170 Transferrin 296.6 mg/dL 203.0-362.0 Tibc (calc) 415 g/dL 261-478 % Iron Saturation 24.6 % 13.0-45.0 Laboratory test finding 08/15/2015 [facility] Folate >23.5 ng/ml 5.9-24.8 Ferritin 37.9 ng/ml 11.0-306.0 Laboratory test 08/03/2015 [facility] Throat Culture Microbiology res 55 , 56 finding <SEE NOTE> Laboratory test 07/06/2015 [facility] Throat Culture Microbiology res Abnormal 57 finding <SEE NOTE> Lipid Treatment 05/16/2015 [facility] Cholesterol 145 mg/dL 50-1 99 Triglycerides 35 mg/dL 30-200 HDL 44 mg/dL 35-85 58 Chol/ HDL Ratio 3.3 ratio Low 3.7-5.6 VLDL 7 mg/dL 2-29 LDL (Calc) 94 mg/dL 20-99 59 Alt 16 U/L 3-42 Ast 16 U/L 8-42 Laboratory test 05/02/2015 [facility] <SEE 60 finding [phone] NOTE> Misc 05/02/2015 [facility] Test Name [id number] Human Guillermo <SEE 61 [phone] NOTE> Result: SEE SEPARATE REP <SEE NOTE> 62 Performing Lab: [facility] <SEE NOTE> 63 GC/Chlamydia By Dna 05/02/2015 [facility] Chlamydia by Dna NEGATIVE Negative Probe Probe GC by Dna Probe NEGATIVE Negative Affirm 05/02/2015 [facility] Trichomonas Vaginalis Negative Negative Gardnerella Vaginalis Negative Negative Yesenia Species Negative Negative Laboratory test finding 05/02/2015 [facility] TSH 1.94 uIU/mL 0.35-4.94 Sure[facility] Pap SEE NOTE 64 Comprehensive Metabolic (CMP) 05/02/2015 [facility] Sodium 136 mmol/L 134- 142 Potassium 3.8 mmol/L 3.5-5.2 Chloride 105 mmol/L 97-109 Carbon Dioxide 24 mmol/L 24-34 Glucose 81 mg/dL 70-105 BUN 13 mg/dL 6-26 Creatinine 0.6 mg/dL 0.5-1.4 Calcium 8.9 mg/dL 8.5-10.2 Total Protein 7.6 g/dL 6.0-8.0 Albumin 4.6 g/dL 3.6-4.9 Globulin 3.0 g/dL 2.0-3.5 A/G Ratio 1.5 Ratio 1.0-2.2 Total Bilirubin 0.7 mg/dL 0.1-1.3 Alkaline Phosphatase 50 U/L 24-140 Alt 16 U/L 3-42 Ast 16 U/L 8-42 Anion Gap 11 mmol/L 6-14 Sachi Egfr >60 >60 65 Non Sachi Egfr >60 >60 66 CBC With Auto Diff 05/02/2015 [facility] WBC 8.1 K/uL 4.1-11.0 RBC 4.65 M/uL 4.00-5.40 Hemoglobin 14.0 gm/dL 12.0-16.0 Hematocrit 40.8 % 36.0-47.0 MCV 87.8 fL 80.0-97.0 MCH 30.2 pg 27.0-32.0 MCHC 34.4 g/dL 32.0-36.0 RDW 12.6 % 11.5-14.5 PLT Count 271 K/ul 140-400 Neutrophil 54.3 % 35.0-75.0 Lymphocyte 28.8 % 16.0-52.0 Monocyte 10.9 % High 2.0-10.0 Eosinophil 5.6 % High 0.0-5.0 Basophil 0.4 % 0.0-4.0 Abs Neutrophils 4.4 K/uL 2.1-8.0 Abs Lymphocytes 2.3 K/uL 0.8-5.5 Abmon 0.9 K/uL 0.1-1.0 Abs Eosinophils 0.5 K/uL 0.0-0.5 Abs Basophils 0.0 K/uL 0.0-0.3 1 Laboratory [place] [id number] Amplified Molecular High Risk HPV Test Patient Name:CECE MCCULLOUGH Patient :1990 Ordering Physician:KAYLA GALLAGHER [facility] Accession Number [id number] Specimen(s) Received A: High Risk HPV SP Cervical/Endocervical Pap Smear - One Vial Other Case Numbers: [id number] Diagnosis RISK GROUPS RESULTS High Risk POSITIVE Tested for HPV Types (16, 18, 31, 33, 35, 39, 45, 51, 52, 56, 58, 59, 66, 68) Comments The presence of High Risk HPV types is usually associated with a high/intermediate risk for development or progression to invasive cancer of the cervix. The performance characteristics of the SurePath residual specimen tested for this assay were validated by [facility] and licensed for use by the [facility] of [facility]. This test has not been licensed by the FDA and the result is not intended to be used as the sole means for clinical diagnosis or patient management. Negative results do not rule out the presence of disease. Reported: 05/26/2018 09:52 Electronically Signed Out By Adeline Omalley [email or web address] Adrianne Santoyopol 2 [facility], [facility]. [address] [place] [id number] CYTOLOGY REPORT Source of Specimen(s): SurePath Cervical / Endocervical Pap Smear - One Vial Date of Last Menstrual Period: None Provided Other Clinical Conditions: HPV ASSAY REQUESTED Specimen Adequacy SATISFACTORY FOR EVALUATION PRESENCE OF ENDOCERVICAL/TRANSFORMATION ZONE COMPONENT General Categorization EPITHELIAL CELL ABNORMALITY Interpretation LOW GRADE SQUAMOUS INTRAEPITHELIAL LESION (LSIL) Comment HPV testing will be performed and a separate report will be issued. Processed and screened at [facility], Cytology, [address] [place] [address], [id number]. Reported at [facility] at [facility], [address] [place] [address]. Reported: 05/25/2018 10:33 Electronically Signed Out By Humberto Greenberg MD [facility] Cdl Driver: Dorothea Temple CT(ASCP) ICD9 Code: Z01.419 CPT code: A: [id number], 88 Unless otherwise specified, testing performed by [facility] [address] [address] 3 May indicate a current or previous infection. Unless otherwise specified, testing performed by [facility] [address] [address] 4 Unless otherwise specified, testing performed by [facility] [address] [address] 5 PERFORM MANUAL DIFFERENTIAL 6 A Negative serologic test for Lyme Disease indicates no serologic evidence of infection with B burgdorferi at the time this specimen was collected. A repeat specimen should be collected in 2 to 4 weeks if clinically indicated. Unless otherwise specified, testing performed by [facility] [address] [address] 7 Interpretation: <0.5 -9 IU/ml Negative 10-15 IU/ml Equivocal >15.0 IU/ml Positive 8 Recommended Cardiac Risk Assessment: Low < 1.0 mg/L Average 1.0 - 3.0 mg/L High > 3.0 mg/L 9 Updated reference range on new analyzer 10 Updated reference range on new analyzer 11 Concerning GFR Guidelines for Americans: Normal function or mild renal disease, if clinically at risk: >/=60 mL/min Moderately decreased: 30-59 Severely decreased: 15-29 Renal failure: <15 12 Concerning GFR Guidelines: Normal function or mild renal disease, if clinically at risk: >/=60 mL/min Moderately decreased: 30-59 Severely decreased: 15-29 Renal failure: <15 Glomerular Filtration Rate (GFR) is estimated based on the MDRD equation, which assumes a steady state for creatinine as recommended by the National Kidney Disease Education Program in conjunction with the National Institutes of Health and the National Kidney Foundation. Clinical conditions in which it may be necessary to measure GFR by using clearance methods include extremes of age and body size, severe malnutrition or obesity, diseases of skeletal muscle, paraplegia or quadriplegia, vegetarian diet, rapidly changing kidney function, and calculation of the dose of potentially toxic drugs that are excreted by the kidneys. 13 Updated Reference Range -2017 14 SPECIMEN DESCRIPTION URINE, COLLECTION METHOD NOT SPECIFIED CULTURE RESULTS <10,000 CFU/ML REPRESENTING URETHRAL ESTEE REPORT STATUS FINAL 07/15/2017 15 Microbiology results SOURCE Clean Catch Midstream COLONY COUNT >100,000 CFU/ML PRELIMINARY RESULT Gram Negative Jarrett. ID & Sensitivity to Follow. 06/28/2017 6:46 PM FINAL RESULT Proteus mirabilis (Isolate 1) Sensitivity Analysis Isolate 1 --------- AMIKACIN <=16 S AMOXICILLIN/CLAVULANATE <=8/4 S AMPICILLIN <=8 S AMPICILLIN/SULBACTAM <=8/4 S CEFAZOLIN <=2 S CEFEPIME <=8 S CEFOTAXIME <=2 S CEFTRIAXONE <=1 S CEFUROXIME <=4 S CIPROFLOXACIN <=1 S ERTAPENEM <=0.5 S GENTAMYCIN <=2 S LEVOFLOXACIN <=2 S NITROFURANTOIN >64 R PIPERACILLIN/TAZOBACTAM <=16 S TETRACYCLINE >8 R TOBRAMYCIN <=4 S TRIMETHOPRIM/SULFAMETHOXAZ <=2/38 S S=Sensitive;I=Indeterminate;R=Resistant 16 Microbiology results SOURCE Clean Catch Midstream COLONY COUNT 50,000 FINAL RESULT Mixed organisms representing urethral estee. No further workup. 17 [facility], [facility]. [address] [place] [address] CYTOLOGY REPORT Source of Specimen(s): SurePath Cervical / Endocervical Pap Smear - One Vial Date of Last Menstrual Period: None Provided Specimen Adequacy SATISFACTORY FOR EVALUATION PRESENCE OF ENDOCERVICAL/TRANSFORMATION ZONE COMPONENT General Categorization NEGATIVE FOR INTRAEPITHELIAL LESION OR MALIGNANCY Interpretation NEGATIVE FOR INTRAEPITHELIAL LESION OR MALIGNANCY Reported: 06/20/2017 08:59 Electronically Signed Out By Dorothea Gill CT(ASCP) trav ICD9 Code: R10.9 CPT code: A: [id number] Unless otherwise specified, testing performed by [facility], [address] [address] 18 Microbiology results SOURCE Clean Catch Midstream FINAL RESULT >100,000 CFU/ML Mixed urethral estee consistent with contamination. No further workup. [address] [address] Amplified Molecular High Risk HPV Test Patient Name:CECE MCCULLOUGH Patient :1990 Ordering Physician:KAYLA GALLAGHER [facility] Accession Number [id number] Specimen(s) Received A: High Risk HPV SP Cervical/Endocervical Pap Smear - One Vial Other Case Numbers: [id number] Diagnosis RISK GROUPS RESULTS High Risk POSITIVE Tested for HPV Types (16, 18, 31, 33, 35, 39, 45, 51, 52, 56, 58, 59, 66, 68) Comments The presence of High Risk HPV types is usually associated with a high/intermediate risk for development or progression to invasive cancer of the cervix. The performance characteristics of the SurePath residual specimen tested for this assay were validated by [facility] and licensed for use by the [facility]. This test has not been licensed by the FDA and the result is not intended to be used as the sole means for clinical diagnosis or patient management. Negative results do not rule out the presence of disease. Reported: 06/27/2017 07:50 Electronically Signed Out By Adeline Omalley [facility] 20 Microbiology results SOURCE Clean Catch Midstream FINAL RESULT 25,000 CFU/ML Mixed urethral estee consistent with contamination. No further workup. 21 Microbiology results SOURCE Clean Catch Midstream COLONY COUNT >100,000 CFU/ML PRELIMINARY RESULT Gram Negative Jrarett. ID & Sensitivity to Follow. FINAL RESULT Proteus mirabilis (Isolate 1) Sensitivity Analysis Isolate 1 --------- AMIKACIN <=16 S AMOXICILLIN/CLAVULANATE <=8/4 S AMPICILLIN <=8 S AMPICILLIN/SULBACTAM <=8/4 S CEFAZOLIN <=2 S CEFEPIME <=8 S CEFOTAXIME <=2 S CEFTRIAXONE <=1 S CEFUROXIME <=4 S CIPROFLOXACIN <=1 S ERTAPENEM <=0.5 S GENTAMYCIN <=2 S LEVOFLOXACIN <=2 S NITROFURANTOIN >64 R PIPERACILLIN/TAZOBACTAM <=16 S TETRACYCLINE >8 R TOBRAMYCIN <=4 S TRIMETHOPRIM/SULFAMETHOXAZ <=2/38 S S=Sensitive;I=Indeterminate;R=Resistant 22 Dr. Suggs Please send copy of results to: 23 May indicate a current or previous infection. 24 May indicate a current or previous infection. Unless otherwise specified, testing performed by [facility] [place] [address] 25 FAX [phone] DR. SUGGS Please send copy of results to: 26 Interpretation: <0.8 -9 Negative 10-15 Equivocal >15.0 Positive 27 Updated reference range on new analyzer 28 Updated reference range on new analyzer 29 Concerning GFR Guidelines: Normal function or mild renal disease, if clinically at risk: >/=60 mL/min Moderately decreased: 30-59 Severely decreased: 15-29 Renal failure: <15 Glomerular Filtration Rate (GFR) is estimated based on the MDRD equation, which assumes a steady state for creatinine as recommended by the National Kidney Disease Education Program in conjunction with the National Institutes of Health and the National Kidney Foundation. Clinical conditions in which it may be necessary to measure GFR by using clearance methods include extremes of age and body size, severe malnutrition or obesity, diseases of skeletal muscle, paraplegia or quadriplegia, vegetarian diet, rapidly changing kidney function, and calculation of the dose of potentially toxic drugs that are excreted by the kidneys. 30 Concerning GFR Guidelines for Americans: Normal function or mild renal disease, if clinically at risk: >/=60 mL/min Moderately decreased: 30-59 Severely decreased: 15-29 Renal failure: <15 31 Updated reference range on new analyzer 32 Microbiology results RESULT Normal throat estee.No beta hemolytic streptococci isolated. 33 A REVIEW OF THE LITERATURE SUGGESTS THE FOLLOWING RANGES FOR THE CLASSIFICATION OF 25-OH VITAMIN D STATUS: VITAMIN D STATUS 25-OH VITAMIN D DEFICIENCY <20 NG/ML INSUFFICIENCY 20-30 NG/ML SUFFICIENCY 31 - 100 NG/ML TOXICITY > 100 NG/ML A PEDIATRIC REFERENCE RANGE HAS NOT BEEN ESTABLISHED USING THIS METHOD. 34 Please send results to Dr Dennis Dalton This sample is drawn by:[facility] 35 SPECIMEN DESCRIPTION STOOL SPECIAL REQUESTS NONE RESULT REQUEST CREDITED THE CRYPTO/GAIRDIA ANTIGEN TEST IS ON A LENGTHY BACKORDER. PLEASE REFER TO THE CRYPTO/GIARDIA EXAM WHICH DETECTS THE TWO PROTOZOANS BY DFA. THE DFA TEST WILL BE SUBSTITUTED FOR ANY ORDERS FOR THE ANTIGEN TEST OF July. DUE TO CONTINUED BACKORDER OF THE ANTIGEN TEST, [facility] IS DISCONTINUING THIS ASSAY. PLEASE ORDER THE CRYPTO/GIARDIA DFA ASSAY IN THE FUTURE, AND ANY ORDERS FOR THE ANTIGEN TEST WILL BE CONVERTED TO THE DFA ASSAY OF July. REPORT STATUS FINAL 07/09/2016 36 SPECIMEN DESCRIPTION STOOL SPECIAL REQUESTS NONE RESULT NEGATIVE FOR ENTERIC PATHOGENS BY PCR. NOTE: THIS MOLECULAR ASSAY DETECTS THE FOLLOWING ENTERIC PATHOGENS: CAMPYLOBACTER GROUP (COLI, JEJUNI, HOA), SALMONELLA SPECIES, SHIGELLA SPECIES (DYSENTERIAE, BOYDII, SONNEI, FLEXNERI), VIBRIO GROUP (CHOLERAE, PARAHAEMOLYTICUS), YERSINIA ENTEROCOLITICA, SHIGA TOXIN 1, SHIGA TOXIN 2, NOROVIRUS GROUP 1 AND 2, ROTAVIRUS A REPORT STATUS FINAL 07/08/2016 37 SPECIMEN DESCRIPTION STOOL SPECIAL REQUESTS NONE RESULT NEGATIVE FOR GIARDIA BY DFA NEGATIVE FOR CRYPTOSPORIDIUM BY DFA STOOL SPECIMEN SCREENED FOR THE PRESENCE OF GIARDIA LAMBLIA AND CRYPTOSPORIDIUM PARVUM ONLY. FOR PATIENTS FROM OR WITH A HISTORY OF TRAVEL TO A DEVELOPING COUNTRY, OR WHO HAVE PERSISTANT SYMPTOMS AND/OR ARE IMMUNOCOMPROMISED, CALL MICROBIOLOGY TO REQUEST THE REFLEX TEST OAP FOR A COMPREHENSIVE MICROSCOPIC EXAMINATION. SPECIMENS ARE SAVED IN FIXATIVE AND HELD FOR 7 DAYS FROM THE REPORT DATE TO ALLOW THESE TESTS TO BE ADDED ON. REPORT STATUS FINAL 07/08/2016 38 NOTE: IF REFLEX CULTURE FOR KLEBSIELLA OXYTOCA IS CLINICALLY INDICATED, PLEASE CONTACT THE MICROBIOLOGY LABORATORY ([phone]) WITHIN 3 DAYS OF THIS REPORT. 39 PERFORMED AT [address] [place] [address] 40 This sample is drawn by:uma 41 Updated reference range on new analyzer 42 Updated reference range on new analyzer 43 Concerning GFR Guidelines: Normal function or mild renal disease, if clinically at risk: >/=60 mL/min Moderately decreased: 30-59 Severely decreased: 15-29 Renal failure: <15 Glomerular Filtration Rate (GFR) is estimated based on the MDRD equation, which assumes a steady state for creatinine as recommended by the National Kidney Disease Education Program in conjunction with the National Institutes of Health and the National Kidney Foundation. Clinical conditions in which it may be necessary to measure GFR by using clearance methods include extremes of age and body size, severe malnutrition or obesity, diseases of skeletal muscle, paraplegia or quadriplegia, vegetarian diet, rapidly changing kidney function, and calculation of the dose of potentially toxic drugs that are excreted by the kidneys. 44 Concerning GFR Guidelines for Americans: Normal function or mild renal disease, if clinically at risk: >/=60 mL/min Moderately decreased: 30-59 Severely decreased: 15-29 Renal failure: <15 45 Updated reference range on new analyzer 46 This sample is drawn by:liat 47 This sample is drawn by:uma 48 This sample is drawn by:BYRON 49 Microbiology results SOURCE URINE COLONY COUNT >100,000 CFU/ML PRELIMINARY RESULT Gram Negative Jarrett. ID & Sensitivity to Follow. FINAL RESULT Klebsiella pneumoniae (Isolate 1) Sensitivity Analysis Isolate 1 --------- AMIKACIN <=16 S AMPICILLIN >16 R AMPICILLIN/SULBACTAM <=8/4 S AZTREONAM <=4 S CEFAZOLIN <=2 S CEFEPIME <=8 S CEFTAZIDIME <=1 S CEFTRIAXONE <=1 S CIPROFLOXACIN <=1 S ERTAPENEM <=0.5 S GENTAMYCIN <=2 S IMIPENEM <=1 S LEVOFLOXACIN <=2 S NITROFURANTOIN 64 I PIPERACILLIN/TAZOBACTAM <=16 S TETRACYCLINE <=4 S TOBRAMYCIN <=4 S TRIMETHOPRIM/SULFAMETHOXAZ <=2/38 S S=Sensitive;I=Indeterminate;R=Resistant 50 This sample is drawn by:byron 51 A Negative serologic test for Lyme Disease indicates no serologic evidence of infection with B burgdorferi at the time this specimen was collected. A repeat specimen should be collected in 2 to 4 weeks if clinically indicated. Unless otherwise specified, [facility] performed [facility] [address] [address] 52 This sample is drawn by:BYRON 53 Recommended Cardiac Risk Assessment: Low < 1.0 mg/L Average 1.0 - 3.0 mg/L High > 3.0 mg/L 54 This sample is drawn by:uma 55 This sample is drawn by:BYRON 56 Microbiology results RESULT Normal throat estee.No beta hemolytic streptococci isolated. 57 Microbiology results RESULT Beta Strep Not Group A Isolated 58 Per NCEP ATP III Guidelines: Results lower than 40 mg/dL are suggestive of increased risk for coronary artery disease. Results > or=to 60 mg/dL are considered a negative risk factor. 59 Per NCEP ATP III Guidelines: Normal Population <130 Patients with medical conditions: CHD/DM Optimal: <100 Borderline high: 130-159 High: 160-189 Very high: >[address] [address] Amplified Molecular High Risk HPV Test Patient Name:CECE MCCULLOUGH Patient :1990 Ordering Physician:KAYLA GALLAGHER [facility] Accession Number [id number] Specimen(s) Received A: High Risk HPV SP Cervical/Endocervical Pap Smear - One Vial Other Case Numbers: [id number] Diagnosis HPV testing will be performed and results will be issued in a separate report. [facility] Reported: 07/17/2017 14:07 Electronically Signed Out By Yanci Garcia MS,SCT(ASCP)([facility]) [facility] 61 [id number] Human Papillomavirus (HPV), High Risk by Hybrid Capture, SurePath SOURCE: CERVICAL/ ENDOCERVICAL 62 SEE SEPARATE REPORT 63 [facility] [address] [place] [id number] 64 LABORATORY [facility]. [address] [place] [id number] GYNECOLOGIC CYTOLOGY REPORT Accession Number: [id number] Source of Specimen(s): A: SurePath Cervical / Endocervical Pap Smear - One Vial Clinical Diagnosis and History: Date of Last Menstrual Period: None Provided Specimen Adequacy Satisfactory for evaluation Presence of endocervical/transformation zone component General Categorization Negative for intraepithelial lesion or malignancy Interpretation NEGATIVE FOR INTRAEPITHELIAL LESION OR MALIGNANCY Acute inflammatory cells Reported: 05/04/2015 Electronically Signed Out By Estephania LOPEZ(ASCP) [facility] dol Unless otherwise specified, testing performed by [facility] [address] [place] [id number] 65 Concerning GFR Guidelines for Americans: Normal function or mild renal disease, if clinically at risk: >/=60 mL/min Moderately decreased: 30-59 Severely decreased: 15-29 Renal failure: <15 66 Concerning GFR Guidelines: Normal function or mild renal disease, if clinically at risk: >/=60 mL/min Moderately decreased: 30-59 Severely decreased: 15-29 Renal failure: <15 Glomerular Filtration Rate (GFR) is estimated based on the MDRD equation, which assumes a steady state for creatinine as recommended by the National Kidney Disease Education Program in conjunction with the National Institutes of Health and the National Kidney Foundation. Clinical conditions in which it may be necessary to measure GFR by using clearance methods include extremes of age and body size, severe malnutrition or obesity, diseases of skeletal muscle, paraplegia or quadriplegia, vegetarian diet, rapidly changing kidney function, and calculation of the dose of potentially toxic drugs that are excreted by the kidneys. Procedures Date Code Description Status 07/21/2018 15688 Airway Inhalation Treatment Completed 12/31/2016 12601 Tympanometry Completed 12/24/2016 21621 Admin Of Inj (Therapeutic Phrophylactic Or Diagnostic Completed Subq Inj 12/24/2016 61439 Electrocardiogram Complete Completed 10/03/2016 83142 Admin Of Inj (Therapeutic Phrophylactic Or Diagnostic Completed Subq Inj 08/13/2016 30042132 Colonoscopy Completed 07/24/2016 [id number] Colonoscopy Completed 07/22/2016 [id number] Colonoscopy Completed 06/26/2016 90719 Admin Of Inj (Therapeutic Phrophylactic Or Diagnostic Completed Subq Inj 01/15/2016 94111 Admin Of Inj (Therapeutic Phrophylactic Or Diagnostic Completed Subq Inj Encounters Type Date Location Provider Dx Diagnosis Office Visit 07/21/2018 Yair Smith MD E66.01 Morbid (severe) 3:45p obesity due to excess calories Z68.41 Body mass index (BMI) 40.0-44.9, adult J45.40 Moderate persistent asthma, uncomplicated Office Visit 07/20/2018 3:45p Yair Smith MD E66.01 Morbid ( severe) obesity due to excess calories J45.40 Moderate persistent asthma, uncomplicated Z68.41 Body mass index (BMI) 40.0-44.9, adult Office Visit 05/20/2018 3:30p Kayla Smith NP Z01.419 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) w/o abn findings K64.5 Perianal venous thrombosis Z68.41 Body mass index (BMI) 40.0-44.9, adult Office Visit 03/18/2018 3:30p Kayla Smith NP H65.23 Chronic serous otitis media, bilateral Z23 Encounter for immunization Z68.41 Body mass index (BMI) 40.0-44.9, adult Office Visit 01/27/2018 3:45p Kayla Smith NP H62.42 Otitis externa in oth diseases classd elswhr, LEFT ear H66.92 Otitis media, unspecified, LEFT ear Z68.41 Body mass index (BMI) 40.0-44.9, adult Office Visit 10/24/2017 11:00a Paula Gallagher, F33.1 Major depressive PABLO Garza disorder, recurrent, moderate Office Visit 10/08/2017 4:00p Jackie Hanson, R10.2 Pelvic and Betty Duncan M.D. perineal pain N92.6 Irregular menstruation, unspecified N94.6 Dysmenorrhea, unspecified Z30.09 Encounter for oth general coun and advice on contraception Office Visit 10/08/2017 12:00p Yair Smith MD M12.80 Oth specific arthropathies, NEC, [facility] R53.83 Other fatigue E66.9 Obesity, unspecified Z68.41 Body mass index (BMI) 40.0-44.9, adult E03.9 Hypothyroidism, unspecified Office Visit 08/25/2017 6:15p Kayla Smith NP R53.83 Other fatigue M12.80 Oth specific arthropathies, NEC, unsp site Z68.38 Body mass index (BMI) 38.0-38.9, adult E03.9 Hypothyroidism, unspecified Office Visit 08/21/2017 6:45p Yair Smith MD G47.33 Obstructive sleep apnea (adult) (pediatric) R53.83 Other fatigue M12.80 Oth specific arthropathies, NEC, unsp site Z68.38 Body mass index (BMI) 38.0-38.9, adult Office Visit 08/01/2017 10:15a Kayla Smith NP F41.9 Anxiety disorder, unspecified F33.1 Major depressive disorder, recurrent, moderate Z68.38 Body mass index (BMI) 38.0-38.9, adult Office Visit 07/22/2017 3:45p Kayla Smith NP R19.7 Diarrhea, unspecified Z68.39 Body mass index (BMI) 39.0-39.9, adult Office Visit 06/26/2017 6:30p Yair Smith MD N30.00 Acute cystitis without hematuria Z68.38 Body mass index (BMI) 38.0-38.9, adult Office Visit 06/20/2017 12:30p Jackie Hanson, R10.2 Pelvic and MD Betty Duncan M.D. perineal pain N92.6 Irregular menstruation, unspecified N94.6 Dysmenorrhea, unspecified Z31.61 Procreat counseling and advice using natural family planning Z68.39 Body mass index (BMI) 39.0-39.9, adult Office Visit 06/18/2017 1:15p Kayla Smith NP Z68.39 Body mass index (BMI) 39.0-39.9, adult R31.9 Hematuria, unspecified R10.9 Unspecified abdominal pain Z11.3 Encntr screen for infections w sexl mode of transmiss Office Visit 05/19/2017 6:00p Kayla Smith NP F41.9 Anxiety disorder, unspecified F33.1 Major depressive disorder, recurrent, moderate Office Visit 05/05/2017 7:15p Kayla Smith NP F33.1 Major depressive disorder, recurrent, moderate F41.9 Anxiety disorder, unspecified Office Visit 04/22/2017 11:15a Kayla Smith NP F33.1 Major depressive disorder, recurrent, moderate F41.9 Anxiety disorder, unspecified Office Visit 03/31/2017 4:45p Kayla Smith NP F33.1 Major depressive disorder, recurrent, moderate G47.00 Insomnia, unspecified Office Visit 03/26/2017 3:00p Kayla Smith, Z30.9 Encounter for FURNITURE [employer]ER contraceptive management, unspecified Office Visit 02/26/2017 2:00p Kayla Smith, N92.1 Excessive and frequent FURNITURE [employer]ER menstruation with irregular cycle N30.01 Acute cystitis with hematuria Office Visit 02/06/2017 11:30a Kayla Smith, B35.9 Dermatophytosis, FURNITURE DUSTER unspecified J31.2 Chronic pharyngitis R10.9 Unspecified abdominal pain N76.0 Acute vaginitis Office Visit 12/31/2016 8:30a Arnaldo Awad, Arnaldo Awad, J35.1 Hypertrophy of MD COFFEY tonsils H69.93 Unspecified Eustachian tube disorder, bilateral H65.32 Chronic mucoid otitis media, LEFT ear Office Visit 12/24/2016 10:00a Kayla Smith, J02.9 Acute pharyngitis, FURNITURE DUSTER unspecified N92.6 Irregular menstruation, unspecified R55 Syncope and collapse Office Visit 10/28/2016 4:45p Kayla Smith NP F33.1 Major depressive disorder, recurrent, moderate F41.9 Anxiety disorder, unspecified Office Visit 10/14/2016 4:45p Kayla Smith NP F33.1 Major depressive disorder, recurrent, moderate F41.9 Anxiety disorder, unspecified Office Visit 09/30/2016 6:45p Kayla Smith NP E55.9 Vitamin D deficiency, unspecified F33.1 Major depressive disorder, recurrent, moderate Z79.899 Other alf (current) drug therapy Office Visit 09/27/2016 4:30p Lesley Chamberlain MD E55.9 Vitamin D deficiency, unspecified F33.1 Major depressive disorder, recurrent, moderate Office Visit 09/02/2016 4:15p Kayla Smith NP F41.9 Anxiety disorder, unspecified F33.1 Major depressive disorder, recurrent, moderate Office Visit 08/19/2016 2:30p Kayla Smith NP F41.9 Anxiety disorder, unspecified F33.1 Major depressive disorder, recurrent, moderate Office Visit 08/12/2016 2:15p Kayla Smith NP F41.9 Anxiety disorder, unspecified F33.1 Major depressive disorder, recurrent, moderate R19.7 Diarrhea, unspecified Office Visit 07/15/2016 1:45p Kayla Smith, FURNITURE DUSTER R10.9 Unspecified abdominal pain F41.9 Anxiety disorder, unspecified Office Visit 07/06/2016 10:30a Kayla Smith FURNITURE D[employer]ER R10.9 Unspecified abdominal pain Office Visit 07/05/2016 11:45a Kayla Smith, PABLO R10.9 Unspecified abdominal pain Office Visit 07/01/2016 6:45p Kayla Smith NP F41.9 Anxiety disorder, unspecified Z79.899 Other animal health technician (current) drug therapy Office Visit 06/26/2016 4:30p Kayla Smith NP F41.9 Anxiety disorder, unspecified F33.1 Major depressive disorder, recurrent, moderate Z30.9 Encounter for contraceptive management, unspecified Office Visit 06/26/2016 2:00p Lesley Self MD E55.9 Vitamin D deficiency, unspecified Office Visit 04/29/2016 6:45p Kayla Smith, F41.9 Anxiety disorder, FURNITURE DUSTER unspecified F33.1 Major depressive disorder, recurrent, moderate Office Visit 04/05/2016 10:45a Kayla Smith NP F41.9 Anxiety disorder, unspecified F33.1 Major depressive disorder, recurrent, moderate Office Visit 03/29/2016 11:00a Kayla Smith NP F41.9 Anxiety disorder, unspecified F33.1 Major depressive disorder, recurrent, moderate R53.82 Chronic fatigue, unspecified 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 Office Visit 03/23/2016 9:00a Kayla Smith NP F41.9 Anxiety disorder, unspecified F33.1 Major depressive disorder, recurrent, moderate Office Visit 03/08/2016 4:45p Paula Edinger, Kayla, FURNITURE DUSTER F41.9 Anxiety disorder, unspecified F33.1 Major depressive disorder, recurrent, moderate Office Visit 02/07/2016 4:30p Kayla Smith, PABLO M54.6 Pain in thoracic spine M54.5 Low back pain Office Visit 01/15/2016 4:15p Kayla Smith NP F41.9 Anxiety disorder, unspecified F33.1 Major depressive disorder, recurrent, moderate Z30.9 Encounter for contraceptive management, unspecified Office Visit 11/16/2015 4:30p Kayla Smith, PABLO F41.9 Anxiety disorder, unspecified F33.1 Major depressive disorder, recurrent, moderate Office Visit 10/27/2015 4:00p Kayla Smith, FURNITURE DUSTER N30.00 Acute cystitis without hematuria N30.01 Acute cystitis with hematuria Office Visit 10/18/2015 1:30p Kayla Smith, R53.82 Chronic fatigue, FURNITURE DUSTER unspecified Office Visit 08/15/2015 12:00p Kayla Smith, F41.9 Anxiety disorder, FURNITURE D[employer]ER unspecified R53.82 Chronic fatigue, unspecified J02.9 Acute pharyngitis, unspecified Office Visit 08/03/2015 11:30a Kayla Smith NP F41.9 Anxiety disorder, unspecified J02.9 Acute pharyngitis, unspecified K12.30 Oral mucositis (ulcerative), unspecified Office Visit 07/06/2015 11:00a Kayla Smith, J02.9 Acute pharyngitis, FURNITURE D[employer]ER unspecified Office Visit 07/04/2015 10:45a Kayla Smith, F41.9 Anxiety disorder, FURNITURE D[employer]ER unspecified F33.1 Major depressive disorder, recurrent, moderate J30.1 Allergic rhinitis due to pollen Office Visit 06/13/2015 11:30a Kayla Smith FURNITURE D[employer]ER F41.9 Anxiety disorder, unspecified F33.1 Major depressive disorder, recurrent, moderate H65.03 Acute serous otitis media, bilateral Office Visit 05/30/2015 11:30a Kayla Smith, F41.9 Anxiety disorder, FURNITURE D[employer]ER unspecified Office Visit 05/16/2015 11:30a Kayla Smith, F41.9 Anxiety disorder, FURNIT[employer] D[employer]ER unspecified Office Visit 05/02/2015 12:00p Kayla Smith, Z00.01 Encounter for general FURNITURE [employer]ER adult medical exam w abnormal findings F41.9 Anxiety disorder, unspecified F33.1 Major depressive disorder, recurrent, moderate Z23 Encounter for immunization Z11.3 Encntr screen for infections w sexl mode of transmiss Plan of Treatment 08/14/2018 - Kayla Gallagher NPF33.2 Major depressv disorder, recurrent severe w/o psych featuresNew Labs:Lipid Panel-fcmg, Ordered: 08/14/18F43.10 Post -traumatic stress disorder, unspecifiedNew Labs:Lipid Panel-fcmg, Ordered: 08/14F90.2 Attention-deficit hyperactivity disorder, combined typeNew Labs:Lipid Panel-fcmg, Ordered: 08/14/18N30.01 Acute cystitis with soxztdeiaJ39.21 Chronic serous otitis media, RIGHT earJ02.9 Acute pharyngitis, unspecifiedComments: DRINK 8 GLASSES OF WATER DAILYSIP ON HOT TEA WITH LEMON, LEMONADE, CHICKEN NOODLE SOUPRUN A VAPORIZER OR HUMIDIFIER IN YOUR ROOMAVOID ALLERGENS AND IRRITANTS LIKE SMOKEIF YOU SMOKE, QUITTYLENOL EVERY 4 HOURS OR MOTRIN EVERY 6 HOURSROBITUSSIN PLAIN 1 OR 2 TSP Q 4 HOURS FOR COUGH, NEEDEDGET PLENTY OF RESTAllNew Medication:Sulfamethoxazole/Trimethoprim DS 800- 160 mg - 1 by mouth twice a dayFluticasone Propionate 50 mcg/Act - 2 sprays each nostril 2 times dailyReferral:Milady Salazar, Otorhinolaryngology
--- OUTSIDE RECORDS SUMMARY | 2018-08-16 19:49 | XMS REPORT | Continuity of Care Document ---
:1990 External Reference #:[id number] Author Name Yair Gallagher MD Address [address] [place] [address] Care Team Providers Name Role Phone Kayla Gallagher NP Primary Care Physician Unavailable Payers Date Identification Numbers Payment Provider Subscriber Effective: 2016 Policy Number: [id number] r/[employer] Group Number: [id number] [address] [address] Group Name: [employer] [place] [address] PayID: [id number] Onset: 2016 Policy Number: [id number] [employer] Cece J Jamel PayID: [id number] [address] [address] [place] [address] Advance Directives Description No Information Available Problems Description No Information Family History Date Family Member(s) Observation Comments [...] Comments Sex Unknown Marital Status Single 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 [employer] ETOH Use Denies alcohol use Tobacco [...] Medications SIG Qnty Indications Ordering Date Provider Albuterol Sulfate HFA 2 puffs every 4 54gm J45.40 [facility]07/20/2018 hours as needed MD Yair 108(90Base) mcg/Act Aerosol Hydrocortisone apply to affected 453.600gm K64.5 [facility]05/20/2018 2.5% areas twice a day PABLO Garza Ointment Hydrocortisone twice a day x 2 14units K64.5 [facility]05/20/2018 Acetate weeks PABLO Garza 25mg Suppository Fluconazole 1 by mouth july 2tabs [facility]02/10/2018 150mg repeat after 2 PABLO Garza Tablets days if still symptomatic Amoxicillin 1 by mouth twice a 20tabs H62.42 [facility]01/27/2018 875mg day PABLO Garza Tablets Ofloxacin (Otic) 5 drops affected QS H62.42 [facility]01/27/2018 0.3% ear every day x 7 PABLO Garza Solution days Clonazepam 1 po three times a 90tabs F41.9 [facility]01/12/2018 0.5mg day PABLO Garza Tablets Bupropion HCL ER (SR) 1 by mouth every 30tabs [facility]10/28/2017 day PABLO Garza 150mg Tablets ER 12HR Bupropion HCL ER (SR) 1 by mouth twice a 60tabs F41.9 [facility]10/20/2017 day MD Yair 150mg Tablets ER 12HR Nuvaring insert 1 ring 3units N92.6 Margie, 10/08/2017 vaginally every 21 Navkathleen MFiliD. 0.12-0.015mg/24HR days, leave in Ring place for 3 weeks, remove, and replace with a new ring Moist Heat Pack moist heat heating [facility], 06/18/2017 Pads pad PABLO Garza Return To Work without 1units [facility]03/26/2017 Misc restrictions PABLO Garza Temazepam 1-2 by mouth every 60caps [facility]03/26/2017 15mg Capsules night at bedtime. 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 Prednisone 8 tabs day 1 then 36tabs M12.8 Elliott 08/21/2017 - 5mg Tablets decrease by 1 tab 0 MD Yair 08/25/2017 per day x 7 days until all are gone. Bupropion HCL ER (XL) 1 by mouth every 30tabs F41.9 Elliott 08/01/2017 - 300mg day PABLO Garza 10/20/2017 Tablets ER 24HR Bupropion HCL ER (SR) 1 by mouth every 30tabs Elliott 08/01/2017 - 150mg day PABLO Garza 10/20/2017 Tablets ER 12HR Aripiprazole 1 po qd 30tabs F33.1 Elliott 08/01/2017 - 30mg Tablets PABLO Garza 10/24/2017 Loperamide HCL take 2 tabs at 30caps R19.7 Elliott07/22/2017 - 2mg Capsules first loose stool PABLO Garza 10/24/2017 and 1 tab fo every loose stool therafter not to exceed 16mg per 24hours Phenazopyridine HCL 1 by mouth every 8 14tabs N30.0 Elliott06/26/2017 - 200mg hours as needed 0 MD Yair 07/22/2017 Tablets Sulfamethoxazole/Trimeth 1 by mouth twice a 14tabs N30.0 Elliott2017 - oprim DS day 0 MD Yair 07/22/2017 800-160mg Tablets Alprazolam 1-2 by mouth three 90tabs F41.9 Elliott06/18/2017 - 0.5mg Tablets times a day as PABLO Garza 01/12/2018 needed Ondansetron 1 by mouth q12 hour 10tabs Elliott 06/18/2017 - 8mg Tablets as needed nausea PABLO Garza 10/24/2017 Dispers Bupropion HCL ER (XL) 1 by mouth every 30tabs F33.1 Elliott 05/19/2017 - 300mg day Kayla, [employer] 06/20/2017 Tablets ER 24HR Bupropion HCL ER (XL) 1 by mouth every 30tabs F41.9 [facility], 05/19/2017 - 150mg day Kayla, [employer] 08/01/2017 Tablets ER 24HR Aripiprazole 1 by mouth every 30tabs F33.1 [facility], 05/19/2017 - 20mg Tablets day Kayla, [employer] 08/01/2017 Bupropion HCL ER (XL) 1 by mouth every F33.1 [facility], 05/05/2017 - 300mg day Kayla, [employer] 05/05/2017 Tablets ER 24HR Bupropion HCL ER (SR) 2 by mouth every 60tabs F33.1 [facility], 05/05/2017 - 200mg day Akyla, [employer] 05/19/2017 Tablets ER 12HR Aripiprazole take one and a half 45tabs F33.1 [facility], 05/05/2017 - 10mg Tablets tablets a day Kayla, [employer] 05/19/2017 Bupropion HCL ER (SR) 2 by mouth every 60tabs F33.1 [facility], 03/31/2017 - 200mg day Kayla, [employer] 05/05/2017 Tablets ER 12HR Bupropion HCL ER (XL) 1 by mouth every 30tabs F33.1 [facility], 03/26/2017 - 300mg day Kayla, [employer] 04/22/2017 Tablets ER 24HR Phenazopyridine HCL 1 by mouth three 9tabs N92.6 [facility], 02/26/2017 - 200mg times a day Kayla, PABLO 03/26/2017 Tablets Sulfamethoxazole/Trimeth 1 by mouth twice a 10tabs N92.6 Elliott 2016 - oprim DS day PABLO Garza 03/26/2017 800-160mg Tablets Metronidazole 1 applicator full 70gm Elliott 02/07/2017 - 0.75% Gel at bedtime x 5 days PABLO Garza 03/26/2017 Ketoconazole apply to affected 60gm B35.9 [facility], 02/06/2017 - 2% Cream area twice a day x PABLO Garza 03/26/2017 2 weeks Amoxicillin/Clavulanate 1 by mouth twice a 20tabs Arnaldo 12/31/2016 - Potassium day MD Ritesh 02/06/2017 875-125mg Tablets Methylprednisolone as directed dose 1pack Arnaldo 12/31/2016 - 4mg abel Awad MD 02/06/2017 Tablets Amoxicillin 1 by mouth twice a 20tabs J02.9 Elliott 12/24/2016 - 875mg Tablets day PABLO Garza 02/06/2017 Out Of Work today J02.9 Elliott 12/24/2016 - [facility] PABLO Garza 12/31/2016 Bupropion HCL ER (SR) 1 by mouth at 30tabs F33.1 Elliott 10/14/2016 - 150mg bedtime PABLO Garza 03/26/2017 Tablets ER 12HR Alprazolam 1-2 three times a 90tabs F41.9 Elliott 10/14/2016 - 0.25mg Tablets day as needed PABLO Garza 06/18/2017 Bupropion HCL 1 by mouth once a 60tabs F33.1 Elliott 09/30/2016 - 75mg Tablets day x 1 week then PABLO Garza 10/14/2016 twice a day Buspirone HCL take two tablets by 60tabs Elliott 09/02/2016 - 10mg Tablets mouth every day PABLO Garza 09/27/2016 Olanzapine 1 by mouth every 30tabs F41.9 [facility] - 20mg Tablets day PABLO Garza 09/27/2016 Dispers Buspirone HCL 1 by mouth x3 days 60tabs Elliott, 08/19/2016 - 5mg Tablets then increase to 2 PABLO Garza 09/02/2016 by mouthx 3 days then continue increasing by 5 mg q 3day to max of 30mg Return To Work without 1units Elliott 08/19/2016 - [facility] restrictions PABLO Garza 09/30/2016 Olanzapine 1 po qd 30tabs F41.9 [facility] 08/12/2016 - 15mg Tablets PABLO Garza 09/02/2016 Clonazepam 1 by mouth twice a 60tabs Elliott 08/12/2016 - 1mg Tablets day PABLO Garza 09/27/2016 Dispers Out Of Work from 07/18/16 to Elliott 08/12/2016 - [facility] 08/19/16 PABLO Garza 09/30/2016 Dicyclomine HCL take two capsules 240caps [facility] 07/15/2016 - 10mg Capsules by mouth four times PABLO Garza 09/27/2016 a day as needed Gas Relief 0.6ml x qid and at QS Elliott 07/15/2016 - 40mg/0.6ML Liquid bedtime PABLO Garza 09/27/2016 Lactulose take 30ml by mouth 946units Elliott 07/15/2016 - 10GM/15ML Solution once daily PABLO Garza 09/27/2016 Xanax 1 tablet by mouth 90tabs F41.9 Elliott, 07/15/2016 - 1mg Tablets three times a day PABLO Garza 08/12/2016 as needed for anxiety Heating Pad Moist/Dry as directed Elliott 07/06/2016 - Teodoro Size PABLO Garza 09/30/2016 Pads Ondansetron 1 by mouth q12 hour 30tabs Elliott 07/05/2016 - 8mg Tablets as needed nausea PABLO Garza 09/27/2016 Dispers Omeprazole 1 by mouth twice a 60caps Elliott 07/05/2016 - 20mg Capsules DR day PABLO Garza 09/27/2016 Xanax 1 tablet by mouth 90tabs F41.9 [facility], 07/01/2016 - 1mg Tablets three times a day PABLO Garza 07/15/2016 as needed for anxiety Vitamin D take 1 capsule by lissa Carranza 06/26/2016 - (Ergocalciferol) mouth every week MD Lesley 09/27/2016 [id number] Capsules Olanzapine F41.9 [facility], 06/26/2016 - 15mg Tablets PABLO Garza 06/26/2016 Olanzapine 1 tablet by mouth 30tabs F41.9 [facility], 06/26/2016 - 10mg Tablets nightly PABLO Garza 08/12/2016 Lamotrigine 2 by mouth twice a 60tabs Elliott 04/29/2016 - 25mg Tablets day PABLO Garza 06/26/2016 Lamotrigine 1 tablet every day 30tabs Elliott 04/15/2016 - 25mg Tablets PABLO Garza 04/29/2016 Xanax 1 by mouth three 90tabs F41.9 [facility], 04/05/2016 - 0.5mg Tablets times a day as PABLO Garza 07/01/2016 needed Xanax 1 by mouth three 30tabs F41.9 [facility], 03/29/2016 - 0.25mg Tablets times a day as PABLO Garza 10/14/2016 needed Fluoxetine HCL 1 by mouth every 90tabs [facility], 03/29/2016 - 60mg Tablets day PABLO Garza 04/15/2016 Fluoxetine HCL (PMDD) 1 by mouth every 30caps [facility], 03/25/2016 - 20mg day PABLO Garza 03/29/2016 Capsules Clonazepam 1 by mouth twice a 60tabs [facility], 03/23/2016 - 0.25mg Tablets day as needed for PABLO Garza 03/23/2016 Dispers anxiety Fluoxetine HCL 1 by mouth every 30caps [facility], 03/23/2016 - 40mg Capsules day PABLO Garza 03/29/2016 Metaxalone 1 by mouth three 90tabs M54.6 [facility], 02/07/2016 - 800mg Tablets times a day PABLO Garza 03/13/2016 Prednisone 3 by mouth every 15tabs M54.6 [facility], 02/07/2016 - 20mg Tablets day x 5 days PABLO Garza 03/13/2016 Abilify 1 by mouth every 45tabs F41.9 [facility], 11/16/2015 - 10mg Tablets day PABLO Garza 04/05/2016 Seroquel 1 by mouth every 30tabs [facility], 10/27/2015 - 25mg Tablets day PABLO Garza 01/15/2016 Sulfamethoxazole/Trimeth 1 by mouth twice a 10tabs N30.0 [facility], 2015 - oprim DS day 0 PABLO Garza 01/15/2016 800-160mg Tablets Vitamin D take 1 capsule by 24caps [facility], 08/23/2015 - (Ergocalciferol) mouth every week PABLO Garza 06/26/2016 [id number] Capsules Azithromycin 2 by mouth every 6tabs [facility], 08/03/2015 - 250mg Tablets day x 1 day then 1 PABLO Garza 08/15/2015 by mouth every day x 4 days Amoxicillin 1 by mouth twice a 14tabs J02.9 [facility], 07/06/2015 - 875mg Tablets day PABLO Garza 08/03/2015 Cymbalta 1 by mouth every 30caps F41.9 Elliott, 07/04/2015 - 60mg Caps DR Cesia Garza NP 03/23/2016 Cymbalta 2 by mouth every 60caps F41.9 Elliott, 05/30/2015 - 20mg Caps DR Cesia Garza NP 07/04/2015 Cymbalta 1 by mouth every 30caps F41.9 Elliott, 05/16/2015 - 30mg Caps DR Cesia Garza NP 05/30/2015 Ondansetron HCL 1 by mouth q12 60tabs F41.9 Elliott, 05/16/2015 - 8mg Tablets hours as needed PABLO Garza 01/15/2016 Work out of work 05/16/15 F41Hemal Gallagher, 05/16/2015 - PABLO Garza 08/15/2015 Proventil HFA inhale 2 puffs by 1units Elliott 05/02/2015 - 108(90Base) mouth every 4 hours PABLO Garza 09/27/2016 mcg/Act Aerosol as needed Naproxen take one tablet by 60tabs Elliott 05/02/2015 - 500mg Tablets mouth twice a day PABLO Garza 01/15/2016 as needed Cymbalta 1 by mouth every 30caps F41.9 Elliott, 05/02/2015 - 20mg Caps DR Cesia Garza NP 05/16/2015 Depo-Provera 150mg intramuscular Unknown - 150mg/ml every 3 months 10/24/2017 Suspension Klonopin F41.9 Unknown - 0.5mg Tablets 01/12/2018 Medications Administered in Office Medication SIG Qnty Indications Ordering Provider Date Albuterol Up To 2.5mg & Yair Gallagher MD 07/21/2018 Ipatropium Alpha Up To 0.5mg Non-Compd Injection Medroxyprogesterone Acetate, 1MG Nurse Schedule Loc 8 06/23/2017 - Use 150MG For Depo-Provera Injection Medroxyprogesterone Acetate, 1MG Kayla Gallagher NP 12/24/2016 - Use 150MG For Depo-Provera Injection Medroxyprogesterone Acetate, 1MG Nurse Schedule Loc 8 10/03/2016 - Use 150MG For Depo-Provera Injection Medroxyprogesterone Acetate, 1MG Kayla Gallagher NP 06/26/2016 - Use 150MG For Depo-Provera Injection Medroxyprogesterone Acetate, 1MG Kayla Gallagher, PABLO 01/15/2016 - Use 150MG For Depo-Provera Injection Immunizations CPT Code Status Date Vaccine Lot # [id number] Given 03/18/2018 Tdap (Adacel) Ages 7 And Above Only [id number] Given 05/02/2015 Influenza Vac, Quadrivalent, Split, 0.5mL Dosage, [place] Use [id number] Given 03/10/2008 Tdap (Adacel) Ages 7 And Above Only [id number] Given 08/11/2007 Gardasil-9 (HPV) Nonavalent 2-[place] [id number] Given 05/18/2007 Gardasil-9 (HPV) Nonavalent 2-[place] [address] Given 02/24/2007 Gardasil-9 (HPV) Nonavalent 2-[place] [address] Refused 01/27/2018 Influenza Vac, Quadrivalent, Split, 0.5mL Dosage, [place] Use 79613 Refused 10/28/2016 Afluria Or Fluvirin Flu Vac Intramuscular [id number] Refused 07/05/2016 Afluria Or Fluvirin Flu Vac Intramuscular Vital Signs Date Vital Result Comment 07/21/2018 3:36pm Body Temperature 98.0 F Weight [...] Mass Index) 40.5 kg/m2 Last Menstrual Period [id number] 0 08/25/2017 6:13pm Body Temperature 99.1 F [...] Mass Index) 39.0 kg/m2 Last Menstrual Period [id number] 0 06/18/2017 1:30pm Body Temperature 98.9 F [...] Test Result H/L Range Note Laboratory test [facility] [place] HPV [facility] 1 finding 9 [phone] [facility] <SEE NOTE> Affirm [facility] Trichomonas Negative Negative 9 Vaginalis Gardnerella Vaginalis Negative Negative Yesenia Species Negative Negative Chlamydia & GC, Dna-FCMG 05/20/2018 [facility] Chlamydia NOT DETECTED Not Detected GC NOT DETECTED Not Detected Laboratory test finding 05/20/2018 [facility] Pap SEE NOTE 2 Laboratory test finding 10/08/2017 [facility] TSH 2.11 uIU/mL 0.35-4.94 Laboratory test finding 08/29/2017 [facility] Ebv Vca Igg POSITIVE (Neg) 3 Ebv Vca Igm NEGATIVE (Neg) 4 Laboratory test finding 08/29/2017 [facility] Monospot Negative Negative Laboratory test finding 08/25/2017 [facility] Free T4 1.07 ng/dL 0.70-1.48 T3,Free 2.75 pg/mL 1.71-3.71 CBC with Auto Diff-fcmg 08/25/2017 [place] WBC 11.4 K/uL High 4.1-11.0 RBC 4.60 [...] K/uL 0.0-0.5 Abs Basophils 0.1 K/uL 0.0-0.3 Arthritis Panel-[facility] 08/21/2017 [place] Rheumatoid Factor <10.0 IU/mL 0.0-10.0 5 Esr 20 mm/hr 0-20 CRP-High 2.97 mg/L 0.00-9.90 6 Uric Acid 4.7 mg/dL 2.6-7.6 [facility] 08/21/2017 [place] Rosangela Screen NEGATIVE Negative dsDNA IgG 0.80 Negative 7 Lyme Igm/Igg AB -RL 08/21/2017 [place] Lyme Igm/Igg AB @ NEGATIVE (Neg) 8 Reflex Manual Differential 08/21/2017 [place] Neutrophils 47 % 35-75 Band 0 % 0-11 Lymphocytes 34 % [...] Estimate NORMAL Normal RBC Morphology NORMAL Normal Laboratory test finding 08/21/2017 [place] TSH 5.30 uIU/mL High 0.35- 4.94 CBC with Auto Diff-fcmg 08/21/2017 [facility] WBC 11.2 K/uL High 4.1-11.0 RBC 4.74 M/uL 4.00-5.40 Hemoglobin 14.1 gm/dL 12.0-16.0 Hematocrit 40.9 % 36.0-47.0 MCV 86.4 fL 80.0-97.0 MCH 29.8 pg 27.0-32.0 MCHC 34.5 g/dL 32.0-36.0 RDW 13.3 % 11.5-14.5 PLT Count 294 K/ul 140-400 MPV 9.1 FL 7.1-10.7 Comprehensive Met Panel-FCMG 08/21/2017 [place] Sodium 139 mmol/L 135- 146 9 Potassium [...] mmol/L 5-15 13 Laboratory test 07/14/2017 [facility] [place] Urine SPECIMEN DESCRI> 14 finding [phone] Culture Laboratory test 06/26/2017 [facility] Urine Microbiology res Abnormal 15 finding Culture <SEE NOTE> Laboratory test 06/20/2017 [facility] Urine Microbiology res 16 finding Culture <SEE [...] finding <SEE NOTE> Laboratory test 06/18/2017 [facility] [place] HPV [facility] Allia 19 finding [phone] <SEE NOTE> Laboratory test 04/22/2017 [facility] Urine [...] dsDNA IgG 0.70 0.00-9.00 26 Affirm 02/06/2017 [facility] Trichomonas Vaginalis Negative Negative Gardnerella Vaginalis Positive Abnormal Negative Yesenia Species Negative Negative Laboratory test 12/24/2016 [facility] Throat Culture Microbiology res <SEE 27 finding NOTE> TSH 1.57 uIU/mL 0.35-4.94 CBC With Auto Diff 12/24/2016 [facility] WBC 8.9 K/uL 4.1-11.0 RBC 4.86 M/uL [...] K/uL 0.0-0.5 Abs Basophils 0.0 K/uL 0.0-0.3 Basic (BMP) 12/24/2016 [facility] Sodium 143 mmol/L 135-146 28 Potassium 4.1 mmol/L 3.5-5.2 Chloride# 106 mmol/L 97-110 29 Carbon Dioxide 27 mmol/L 24-34 Glucose 72 mg/dL 70-105 Creatinine 0.8 mg/dL 0.5-1.4 Calcium 10.0 mg/dL 8.5-10.2 Non Sachi Egfr >60 >60 30 Sachi Egfr >60 >60 31 Anion Gap 10 mmol/L 7-16 32 BUN 14 mg/dL 6-26 Laboratory test 09/27/2016 [facility] [place] Free Thyroxine 1.40 ng/dL (0.76- 1.46) finding [phone] @ TSH,Ultrasensitive @ 0.286 mIU/L Low (0.360-4.170) 25 Hydroxy Vit D @ 34 ng/mL (31-100) 33 Celiac Disease Panel 08/12/2016 [facility] Celikey (tTG) IgA Negative Negative 34 Celikey (tTG) IgG Negative Negative deamidated Gliadin IgA Negative Negative deamidated Gliadin IgG Negative Negative Laboratory test 08/12/2016 [facility] CRP (C-Reactive) 0.97 mg/dL High 0.00- 0.75 finding Stool Panel 07/06/2016 [facility] [place] Giard/Cryptosp SPECIMEN 35 [phone] Exam DESCRI> C Diff Toxin B 07/06/2016 [facility] Specimen STOOL PCR Stool [phone] Description C Diff Toxin B NEGATIVE (Neg) 027 Nap1 B1 NEGATIVE (Neg) Comment NOTE: IF REFLEX <SEE NOTE> 36 Lactoferrin,Fecal 07/06/2016 [facility] Lactoferrin, NEGATIVE (Neg) 37 [phone] Fecal Laboratory test 07/06/2016 [facility] [place] Enteric SPECIMEN 38 finding [phone] Pathogens By DESCRI> PCR Laboratory test 07/06/2016 [facility] [place] Crypto/Giard SPECIMEN 39 finding [phone] Antigen DESCRI> Laboratory test 07/05/2016 [facility] TSH 1.25 uIU/mL 0.35-4.9 40 finding 4 Amylase 37 U/L 29-103 Lipase 19 U/L 11-82 Basic (BMP) 07/01/2016 [facility] Sodium 138 mmol/L 135-146 41 Potassium 5.0 [...] IgG NEGATIVE Laboratory test finding 08/15/2015 [facility] Folate >23.5 ng/ml 5.9-24.8 54 Ferritin 37.9 ng/ml 11.0-306.0 Iron Panel 08/15/2015 [facility] Iron, Total 102 g/dL 50-170 Transferrin 296.6 mg/dL 203.0-362.0 Tibc (calc) 415 g/dL 261-478 % Iron Saturation 24.6 % 13.0-45.0 Laboratory test finding 08/15/2015 [facility] Vitamin B12 292 pg/mL 180- 914 Vit D,25 Hydroxy 30 ng/mL Low 31-100 Laboratory test 08/03/2015 [facility] Throat Culture Microbiology [...] 16 U/L 3-42 Ast 16 U/L 8-42 CBC With Auto Diff 05/02/2015 [facility] WBC [...] K/uL 0.0-0.5 Abs Basophils 0.0 K/uL 0.0-0.3 Comprehensive Metabolic (CMP) 05/02/2015 [place] Sodium 136 mmol/L 134- 142 Potassium 3.8 [...] 11 mmol/L 6-14 Sachi Egfr >60 >60 60 Non Sachi Egfr >60 >60 61 Laboratory test finding 05/02/2015 [facility] TSH 1.94 uIU/mL 0.35-4.94 [facility] Pap SEE NOTE 62 Affirm 05/02/2015 [facility] Trichomonas Vaginalis Negative Negative Gardnerella Vaginalis Negative Negative Yesenia Species Negative Negative GC/Chlamydia By Dna 05/02/2015 [facility] Chlamydia by Dna NEGATIVE Negative Probe Probe GC by Dna Probe NEGATIVE Negative Laboratory test 05/02/2015 [facility] [place] [facility] Laboratory Allia <SEE 63 finding [phone] NOTE> Misc 05/02/2015 [facility] [place] Test Name [id number] Human Guillermo <SEE 64 [phone] NOTE> Result: SEE SEPARATE REP <SEE NOTE> 65 Performing Lab: [facility] <SEE NOTE> [address] [place] [address] Amplified Molecular High Risk HPV Test Patient Name:CECE MCCULLOUGH Patient :1990 Ordering Physician:KAYLA GALLAGHER [facility] Accession Number [id number] Specimen(s) Received A: High Risk HPV SP Cervical/Endocervical Pap Smear - One Vial Other Case Numbers: [id number] Diagnosis RISK GROUPS RESULTS High Risk POSITIVE [...] tested for this assay were validated by [facility] [place] [facility] and licensed for use by the [facility] Department of [facility]. This test has not been licensed by the FDA and the result is not intended to be used as the sole means for clinical diagnosis or patient management. Negative results do not rule out the presence of disease. Reported: 05/26/2018 09:52 Electronically Signed Out By Adeline Omalley [email or web address] Adrianne Santoyopol 2 [facility]. [address] [place] [address] CYTOLOGY REPORT Source of Specimen(s): [facility] Cervical [...] will be issued. Processed and screened at [facility], Cytology, [address] [place] [address], [id number]. Reported at [facility] at [facility], [address] [place] [address]. Reported: 05/25/2018 10:33 Electronically Signed Out By Humberto Greenberg MD [facility] Bulb Tester: Dorothea Temple CT(ASCP) ICD9 Code: Z01.419 CPT code: A: [id number], 88 Unless otherwise specified, testing performed by [facility] [employer] [address] [place] [address] 3 May indicate a current or previous infection. Unless otherwise specified, testing performed by [facility] [employer] [address] [place] [id number] 4 Unless otherwise specified, testing performed by [facility] [employer] [address] [place] [address] 5 PERFORM MANUAL DIFFERENTIAL 6 Recommended Cardiac Risk Assessment: Low < 1.0 mg/L Average 1.0 - 3.0 mg/L High > 3.0 mg/L 7 Interpretation: <0.5 -9 IU/ml Negative 10-15 IU/ml Equivocal >15.0 IU/ml Positive 8 A Negative serologic test for Lyme Disease indicates no serologic evidence of infection with B burgdorferi at the time this specimen was collected. A repeat specimen should be collected in 2 to 4 weeks if clinically indicated. Unless otherwise specified, testing performed by [facility] [address] [place] [address] 9 Updated reference range on new analyzer [...] estee. No further workup. 17 [facility]. [address] [place] [address] CYTOLOGY REPORT Source of Specimen(s): [facility] Cervical / Endocervical Pap Smear - One Vial Date of Last Menstrual Period: None Provided Specimen Adequacy SATISFACTORY FOR EVALUATION PRESENCE OF ENDOCERVICAL/TRANSFORMATION ZONE COMPONENT General Categorization NEGATIVE FOR INTRAEPITHELIAL LESION OR MALIGNANCY Interpretation NEGATIVE FOR INTRAEPITHELIAL LESION OR MALIGNANCY Reported: 06/20/2017 08:59 Electronically Signed Out By Dorothea LOPEZ(ASCP) trav ICD9 Code: R10.9 CPT code: A: [id number] Unless otherwise specified, testing performed by [facility] [address] [address] 18 Microbiology results SOURCE Clean Catch Midstream FINAL RESULT >100,000 CFU/ML Mixed urethral estee consistent with contamination. No further workup. [address] [facility] [address] [address] Amplified Molecular High Risk HPV Test Patient Name:CECE MCCULLOUGH Patient :1990 Ordering Physician:KAYLA GALLAGHER [facility] Accession Number [id number] Specimen(s) Received A: High Risk HPV SP Cervical/Endocervical Pap Smear - One Vial Other Case Numbers: [id number] Diagnosis RISK GROUPS RESULTS High Risk POSITIVE [...] tested for this assay were validated by [employer] and licensed for use by the [facility] Department of [facility]. This test has not been [...] Unless otherwise specified, testing performed by [facility] [place] [address] 25 FAX [phone] [address] SUGGS Please send copy of results to: 26 Interpretation: <0.8 -9 Negative 10-15 Equivocal >15.0 Positive 27 Microbiology results RESULT Normal throat estee.No beta hemolytic streptococci isolated. 28 Updated reference range on new analyzer 29 Updated reference range on new analyzer 30 Concerning GFR Guidelines: Normal function or mild [...] drugs that are excreted by the kidneys. 31 Concerning GFR Guidelines for Americans: Normal function or mild renal disease, if clinically at risk: >/=60 mL/min Moderately decreased: 30-59 Severely decreased: 15-29 Renal failure: <15 32 Updated reference range on new 33 A REVIEW OF THE LITERATURE SUGGESTS [...] BE ADDED ON. REPORT STATUS FINAL 07/08/2016 36 NOTE: IF REFLEX CULTURE FOR KLEBSIELLA OXYTOCA IS CLINICALLY INDICATED, PLEASE CONTACT THE MICROBIOLOGY LABORATORY ([phone]) WITHIN 3 DAYS OF THIS REPORT. 37 PERFORMED AT [address] [place] [address] 38 SPECIMEN DESCRIPTION STOOL SPECIAL REQUESTS NONE RESULT NEGATIVE FOR ENTERIC PATHOGENS BY PCR. NOTE: THIS MOLECULAR ASSAY DETECTS THE FOLLOWING ENTERIC PATHOGENS: CAMPYLOBACTER GROUP (COLI, JEJUNI, HOA), SALMONELLA SPECIES, SHIGELLA SPECIES (DYSENTERIAE, BOYDII, SONNEI, FLEXNERI), VIBRIO GROUP (CHOLERAE, PARAHAEMOLYTICUS), YERSINIA ENTEROCOLITICA, SHIGA TOXIN 1, SHIGA TOXIN 2, NOROVIRUS GROUP 1 AND 2, ROTAVIRUS A REPORT STATUS FINAL 07/08/2016 39 SPECIMEN DESCRIPTION STOOL SPECIAL REQUESTS NONE RESULT REQUEST CREDITED THE CRYPTO/GAIRDIA ANTIGEN TEST IS ON A LENGTHY BACKORDER. PLEASE REFER TO THE CRYPTO/GIARDIA EXAM WHICH DETECTS THE TWO PROTOZOANS BY DFA. THE DFA TEST WILL BE SUBSTITUTED FOR ANY ORDERS FOR THE ANTIGEN TEST OF July. DUE TO CONTINUED BACKORDER OF THE ANTIGEN TEST, [facility] IS DISCONTINUING THIS ASSAY. PLEASE ORDER THE CRYPTO/GIARDIA DFA ASSAY IN THE FUTURE, AND ANY ORDERS FOR THE ANTIGEN TEST WILL BE CONVERTED TO THE DFA ASSAY OF July. REPORT STATUS FINAL 07/09/2016 40 This sample is drawn by:uma 41 [...] new analyzer 46 This sample is drawn by:lita 47 This sample is drawn by:uma 48 [...] indicated. Unless otherwise specified, testing performed by [facility] [address] [address] 52 This sample is drawn by:BYRON 53 [...] 130-159 High: 160-189 Very high: >189 60 Concerning GFR Guidelines for Americans: Normal function or mild renal disease, if clinically at risk: >/=60 mL/min Moderately decreased: 30-59 Severely decreased: 15-29 Renal failure: <15 61 Concerning GFR Guidelines: Normal function or mild [...] drugs that are excreted by the kidneys. 62 LABORATORY [employer] [facility]. [address] [place] [id number] GYNECOLOGIC CYTOLOGY REPORT Accession Number: [id number] Source of Specimen(s): A: [employer] Cervical / Endocervical Pap Smear - One Vial Clinical Diagnosis and History: Date of Last Menstrual Period: None Provided Specimen Adequacy Satisfactory for evaluation Presence of endocervical/transformation zone component General Categorization Negative for intraepithelial lesion or malignancy Interpretation NEGATIVE FOR INTRAEPITHELIAL LESION OR MALIGNANCY Acute inflammatory cells Reported: 05/04/2015 Electronically Signed Out By Estephania LOPEZ(ASC) [facility] dol Unless otherwise specified, testing performed by [facility] [address] [address] [address] [address] Amplified Molecular High Risk HPV Test Patient Name:CECE MCCULLOUGH Patient :1990 Ordering Physician:KAYLA GALLAGHER [facility] Accession Number [id number] Specimen(s) Received A: High Risk HPV SP Cervical/Endocervical Pap Smear - One Vial Other Case Numbers: [id number] Diagnosis HPV testing will be performed and results will be issued in a separate report. [facility] Reported: 07/17/2017 14:07 Electronically Signed Out By Yanci Garcia, MS,[facility](ASCP)([facility]) [facility] 64 [id number] Human Papillomavirus (HPV), High Risk by Hybrid Capture, [employer] SOURCE: CERVICAL/ ENDOCERVICAL 65 SEE SEPARATE REPORT [address] [address] Procedures Date Code Description Status 07/21/2018 57253 Airway Inhalation Treatment Completed 12/31/2016 16496 Tympanometry Completed 12/24/2016 93823 Admin Of Inj (Therapeutic Phrophylactic Or Diagnostic Completed Subq Inj 12/24/2016 07874 Electrocardiogram Complete Completed 10/03/2016 77542 Admin Of Inj (Therapeutic Phrophylactic Or Diagnostic Completed Subq Inj 08/13/2016 56476133 Colonoscopy Completed 07/24/2016 59390494 Colonoscopy Completed 07/22/2016 [id number] Colonoscopy Completed 06/26/2016 85081 Admin Of Inj (Therapeutic Phrophylactic Or Diagnostic Completed Subq Inj 01/15/2016 52350 Admin Of Inj (Therapeutic Phrophylactic Or Diagnostic Completed Subq Inj Encounters Type Date Location Provider Dx Diagnosis Office Visit 05/20/2018 Kayla Smith, 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 3: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 [employer] (general) (routine) w/o abn findings K64.5 Perianal [...] Smith MD M12.80 Oth specific arthropathies, NEC, [facility] site R53.83 Other fatigue E66.9 Obesity, unspecified [...] 03/26/2017 3:00p Kayla Smith, Z30.9 Encounter for [employer] contraceptive management, unspecified Office Visit 02/26/2017 2:00p Kayla Smith, N92.1 Excessive and frequent [employer] menstruation with irregular cycle N30.01 Acute cystitis with hematuria Office Visit 02/06/2017 11:30a Kayla Smith, B35.9 Dermatophytosis, [employer] unspecified J31.2 Chronic pharyngitis R10.9 Unspecified abdominal pain N76.0 Acute vaginitis Office Visit 12/31/2016 8:30a Arnaldo Awad, Arnaldo Awad, J35.1 Hypertrophy of [place] COFF[place]Y tonsils H69.93 Unspecified Eustachian tube disorder, bilateral H65.32 Chronic mucoid otitis media, LEFT ear Office Visit 12/24/2016 10:00a Kayla Smith, J02.9 Acute pharyngitis, [employer] unspecified N92.6 Irregular menstruation, unspecified R55 Syncope and collapse Office Visit 10/28/2016 4:45p Kayla Smith NP F33.1 Major depressive disorder, recurrent, moderate F41.9 Anxiety disorder, unspecified Office Visit 10/14/2016 4:45p Kayla Smith NP F33.1 Major depressive disorder, recurrent, moderate F41.9 Anxiety disorder, unspecified Office Visit 09/30/2016 6:45p Kayla Smith NP E55.9 Vitamin D deficiency, unspecified F33.1 Major depressive disorder, recurrent, moderate 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 Office Visit 09/27/2016 4:30p Lesley hCamberlain MD E55.9 Vitamin D deficiency, unspecified F33.1 Major depressive disorder, recurrent, moderate Office Visit 09/02/2016 4:15p Kayla Smith NP F41.9 Anxiety disorder, unspecified F33.1 Major depressive disorder, recurrent, moderate Office Visit 08/19/2016 2:30p Kayla Smith NP F41.9 Anxiety disorder, unspecified F33.1 Major depressive disorder, recurrent, moderate Office Visit 08/12/2016 2:15p Kayla Smith, PABLO F41.9 Anxiety disorder, unspecified F33.1 Major depressive disorder, recurrent, moderate R19.7 Diarrhea, unspecified Office Visit 07/15/2016 1:45p Kayla Smith, PABLO R10.9 Unspecified abdominal pain F41.9 Anxiety disorder, unspecified Office Visit 07/06/2016 10:30a Kayla Smith, PABLO R10.9 Unspecified abdominal pain Office Visit 07/05/2016 11:45a Kayla Smith NP R10.9 Unspecified abdominal pain Office Visit 07/01/2016 6:45p Kayla Smith NP F41.9 Anxiety disorder, unspecified 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 Office Visit 06/26/2016 4:30p Kayla Smith NP F41.9 Anxiety disorder, unspecified F33.1 Major depressive disorder, recurrent, moderate Z30.9 Encounter for contraceptive management, unspecified Office Visit 06/26/2016 2:00p Lesley Self MD E55.9 Vitamin D deficiency, unspecified Office Visit 04/29/2016 6:45p Kayla Smith, F41.9 Anxiety disorder, [employer] unspecified F33.1 Major depressive disorder, recurrent, moderate Office Visit 04/05/2016 10:45a Kayla Smith NP F41.9 Anxiety disorder, unspecified F33.1 Major depressive disorder, recurrent, moderate Office Visit 03/29/2016 11:00a Kayla Smith NP F41.9 Anxiety disorder, unspecified F33.1 Major depressive disorder, recurrent, moderate R53.82 Chronic fatigue, unspecified 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 Office Visit 03/23/2016 9:00a Kayla Smith NP F41.9 Anxiety disorder, unspecified F33.1 Major depressive disorder, recurrent, moderate Office Visit 03/08/2016 4:45p Kayla Smith NP F41.9 Anxiety disorder, unspecified F33.1 Major depressive disorder, recurrent, moderate Office Visit 02/07/2016 4:30p Kayla Smith, [employer] M54.6 Pain in thoracic spine M54.5 Low back pain Office Visit 01/15/2016 4:15p Kayla Smith, PABLO F41.9 Anxiety disorder, unspecified F33.1 Major depressive disorder, recurrent, moderate Z30.9 Encounter for contraceptive management, unspecified Office Visit 11/16/2015 4:30p Kayla Smith, [employer] F41.9 Anxiety disorder, unspecified F33.1 Major depressive disorder, recurrent, moderate Office Visit 10/27/2015 4:00p Kayla Smith, [employer] N30.00 Acute cystitis without hematuria N30.01 Acute cystitis with hematuria Office Visit 10/18/2015 1:30p Kayla Smith, R53.82 Chronic fatigue, [employer] unspecified Office Visit 08/15/2015 12:00p Kayla Smith, F41.9 Anxiety disorder, [employer] unspecified R53.82 Chronic fatigue, unspecified J02.9 Acute pharyngitis, unspecified Office Visit 08/03/2015 11:30a Kayla Smith, [employer] F41.9 Anxiety disorder, unspecified J02.9 Acute pharyngitis, unspecified K12.30 Oral mucositis (ulcerative), unspecified Office Visit 07/06/2015 11:00a Kayla Smith, J02.9 Acute pharyngitis, [employer] unspecified Office Visit 07/04/2015 10:45a Kayla Smith, F41.9 Anxiety disorder, [employer] unspecified F33.1 Major depressive disorder, recurrent, moderate J30.1 Allergic rhinitis due to pollen Office Visit 06/13/2015 11:30a Kayla Smith, [employer] F41.9 Anxiety disorder, unspecified F33.1 Major depressive disorder, recurrent, moderate H65.03 Acute serous otitis media, bilateral Office Visit 05/30/2015 11:30a Kayla Smith, F41.9 Anxiety disorder, [employer] unspecified Office Visit 05/16/2015 11:30a Kayla Smith, F41.9 Anxiety disorder, [employer] unspecified Office Visit 05/02/2015 12:00p Kayla Smith, Z00.01 Encounter for general [employer] adult medical exam w abnormal findings F41.9 Anxiety disorder, unspecified F33.1 Major depressive disorder, recurrent, moderate Z23 Encounter for immunization Z11.3 Encntr screen for infections w sexl mode of transmiss Plan of Treatment Future Appointment(s):08/14/2018 4:00 pm - Kayla Gallagher NP at [place]2018 2:30 pm - Betty Hanson M.D. at [facility] MD07/21/2018 - Yair Gallagher MDE66.01 Morbid (severe) obesity due to excess caloriesComments: CONTINUE WORKING ON DIET AND EXERCISE RECOMMEND WEIGHT WATCHERS AND OFFERED AN APPOINTMENT WITH OUR NITRITIONIST. PATIENT WILL CALL FOR THIS APPT.Follow up: Followup:.Z68.41 Body mass index (BMI) 40.0-44.9, tzornD58.40 Moderate persistent asthma, uncomplicatedComments:INCREASE FREQUENCY OF PROVENTIL TO Q4H WHILE AWAKE AND Q2H PRN. CALL BACK IMMEDIATELY FOR ANY WORSENING OR IF NO RESPONSE TO PROVENTIL. we'll start tapering course of prednisone. Patient to call back in 24 hours if not seeing improvement.Follow up:Followup:.
--- OUTSIDE RECORDS SUMMARY | 2018-08-16 19:50 | XMS REPORT | Continuity of Care Document ---
:1990 External Reference #:[id number] Author Name Yair Gallagher MD Address [address] [place] [address] Care Team Providers Name Role Phone Kayla Gallagher NP Primary Care Physician Unavailable Payers Date Identification Numbers Payment Provider Subscriber Effective: 2016 Policy Number: [id number] r/[employer]cc[employer]ough Group Number: [id number] [address] [address] Group Name: [employer] [place] [address] PayID: [id number] Onset: 2016 Policy Number: [id number] Progressive Cece J Jamel PayID: [id number] [address] [address] [place] [address] Advance Directives Description No Information Available Problems [...] Comments Sex Unknown Marital Status 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[employer] ETOH Use Denies alcohol use Tobacco [...] HFA 2 puffs every 4 54gm J45.40 [facility]07/20/2018 hours as needed MD Yair 108(90Base) mcg/Act Aerosol Hydrocortisone apply to affected 453.600gm K64.5 [facility]05/20/2018 2.5% areas twice a day PABLO Garza Ointment Hydrocortisone twice a day x 2 14units K64.5 [facility]05/20/2018 Acetate weeks PABLO Garza 25mg Suppository Fluconazole 1 by mouth july 2tabs [facility]02/10/2018 150mg repeat after 2 PABLO Garza Tablets days if still symptomatic Amoxicillin 1 by mouth twice a 20tabs H62.42 [facility]01/27/2018 875mg day PABLO Garza Tablets Ofloxacin (Otic) 5 drops affected QS H62.42 [facility]01/27/2018 0.3% ear every day x 7 PABLO Garza Solution days Clonazepam 1 po three times a 90tabs F41.9 [facility]01/12/2018 0.5mg day PABLO Garza Tablets Bupropion HCL ER (SR) 1 by mouth every 30tabs [facility]10/28/2017 day PABLO Garza 150mg Tablets ER 12HR Bupropion HCL ER (SR) 1 by mouth twice a 60tabs F41.9 [facility]10/20/2017 day MD Yair 150mg Tablets ER 12HR Nuvaring insert 1 ring 3units N92.6 Margie, 10/08/2017 vaginally every 21 Navkathleen MFiliD. 0.12-0.015mg/24HR days, leave in Ring place for 3 weeks, remove, and replace with a new ring Moist Heat Pack moist heat heating [facility], 06/18/2017 Pads pad PABLO Garza Return To Work without 1units [facility]03/26/2017 Misc restrictions PABLO Garza Temazepam 1-2 by mouth every 60caps [facility]03/26/2017 15mg Capsules night at bedtime. 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 Vitamin D 2 by mouth every 60tabs [facility]09/30/2016 (Cholecalciferol) day PABLO Garza 1000Unit Tablets History [...] F33.1 [facility] 05/19/2017 - 300mg day Kayla, MINE PATROL 06/20/2017 Tablets ER 24HR Bupropion HCL ER (XL) 1 by mouth every 30tabs F41.9 [facility], 05/19/2017 - 150mg day Kayla, MINE PATROL 08/01/2017 Tablets ER 24HR Aripiprazole 1 by mouth every 30tabs F33.1 [facility], 05/19/2017 - 20mg Tablets day Kayla, MINE PATROL 08/01/2017 Bupropion HCL ER (XL) 1 by mouth every F33.1 [facility], 05/05/2017 - 300mg day Kayla, MINE PATROL 05/05/2017 Tablets ER 24HR Bupropion HCL ER (SR) 2 by mouth every 60tabs F33.1 [facility], 05/05/2017 - 200mg day Kayla, MINE PATROL 05/19/2017 Tablets ER 12HR Aripiprazole take one and a half 45tabs F33.1 [facility], 05/05/2017 - 10mg Tablets tablets a day Kayla, MINE PATROL 05/19/2017 Bupropion HCL ER (SR) 2 by mouth every 60tabs F33.1 [facility], 03/31/2017 - 200mg day Kayla, MINE PATROL 05/05/2017 Tablets ER 12HR Bupropion HCL ER (XL) 1 by mouth every 30tabs F33.1 [facility], 03/26/2017 - 300mg day Kayla, MINE PATROL 04/22/2017 Tablets ER 24HR Phenazopyridine HCL 1 by mouth three 9tabs N92.6 [facility], 02/26/2017 - 200mg times a day Kayla, PABLO 03/26/2017 Tablets Sulfamethoxazole/Trimeth 1 by mouth twice a 10tabs N92.6 Elliott 2016 - oprim DS day PABLO Garza 03/26/2017 800-160mg Tablets Metronidazole 1 applicator full 70gm Elliott 02/07/2017 - 0.75% Gel at bedtime x 5 days PABLO Garza 03/26/2017 Ketoconazole apply to affected 60gm B35.9 [facility]2017 - 2% Cream area twice a [...] Of Work today J02.9 [facility] 12/24/2016 - [facility] [place] PABLO Garza 12/31/2016 Bupropion HCL ER (SR) [...] Olanzapine 1 by mouth every 30tabs F41.9 [facility] - 20[facility] Tablets day PABLO Garza 09/27/2016 Dispers Buspirone HCL 1 by mouth x3 days 60tabs Elliott, 08/19/2016 - 5mg Tablets then increase to 2 PABLO Garza 09/02/2016 by mouthx 3 days then continue increasing by 5 mg q 3day to max of 30mg Return To Work without 1units Elliott 08/19/2016 - [facility] restrictions PABLO Garza 09/30/2016 Olanzapine 1 po qd 30tabs F41.9 [facility] 08/12/2016 - 15mg Tablets PABLO Garza 09/02/2016 Clonazepam 1 by mouth twice a 60tabs Elliott 08/12/2016 - 1mg Tablets day PABLO Garza 09/27/2016 Dispers Out Of Work from 07/18/16 to [facility] 08/12/2016 - [facility] 08/19/16 PABLO Garza 09/30/2016 Dicyclomine HCL take two capsules 240caps [facility] 07/15[facility]2016 - 10mg Capsules by [...] Ondansetron 1 by mouth q12 hour 30tabs [facility] 07/05/2016 - 8mg Tablets as needed nausea PABLO Garza 09/27/2016 Dispers Omeprazole 1 by mouth twice a 60caps Elliott 07/05/2016 - 20mg Capsules DR day PABLO Garza 09/27/2016 Xanax 1 tablet by mouth 90tabs F41.9 [facility], 07/01/2016 - 1mg Tablets three times a day PABLO Garza 07/15/2016 as needed for anxiety Vitamin D take 1 capsule by lissa Carranza 06/26/2016 - (Ergocalciferol) mouth every week MD Lesley 09/27/2016 [id number] Capsules Olanzapine F41.9 [facility], 06/26/2016 - 15mg Tablets PABLO Garza 06/26/2016 Olanzapine 1 tablet by mouth 30tabs F41.9 [facility], 06/26/2016 - 10mg Tablets nightly PABLO Garza 08/12/2016 Lamotrigine 2 by mouth twice a 60tabs Elliott 04/29/2016 - 25mg Tablets day PABLO Garza 06/26/2016 Lamotrigine 1 tablet every day 30tabs Elliott 04/15/2016 - 25mg Tablets PABLO Garza 04/29/2016 Xanax 1 by mouth three 90tabs F41.9 [facility], 04/05/2016 - 0.5mg Tablets times a day as PABLO Garza 07/01/2016 needed Xanax 1 by mouth three 30tabs F41.9 [facility], 03/29/2016 - 0.25mg Tablets times a day as PABLO Garza 10/14/2016 needed Fluoxetine HCL 1 by mouth every 90tabs [facility], 03/29/2016 - 60mg Tablets day PABLO Garza 04/15/2016 Fluoxetine HCL (PMDD) 1 by mouth every 30caps [facility], 03/25/2016 - 20mg day PABLO Garza 03/29/2016 Capsules Clonazepam 1 by mouth twice a 60tabs [facility], 03/23/2016 - 0.25mg Tablets day as needed for PABLO Garza 03/23/2016 Dispers anxiety Fluoxetine HCL 1 by mouth every 30caps [facility], 03/23/2016 - 40mg Capsules day PABLO Garza 03/29/2016 Metaxalone 1 by mouth three 90tabs M54.6 [facility], 02/07/2016 - 800mg Tablets times a day PABLO Garza 03/13/2016 Prednisone 3 by mouth every 15tabs M54.6 [facility], 02/07/2016 - 20mg Tablets day x 5 days PABLO Garza 03/13/2016 Abilify 1 by mouth every 45tabs F41.9 [facility], 11/16/2015 - 10mg Tablets day PABLO Garza 04/05/2016 Seroquel 1 by mouth every 30tabs [facility], 10/27/2015 - 25mg Tablets day PABLO Garza 01/15/2016 Sulfamethoxazole/Trimeth 1 by mouth twice a 10tabs N30.0 [facility], 2015 - oprim DS day 0 PALBO Garza 01/15/2016 800-160mg Tablets Vitamin D take 1 capsule by 24caps [facility], 08/23/2015 - (Ergocalciferol) mouth every week PABLO Garza 06/26/2016 [id number] Capsules Azithromycin 2 by mouth every 6tabs [facility], 08/03/2015 - 250mg Tablets day x 1 day then 1 PABLO Garza 08/15/2015 by mouth every day x 4 days Amoxicillin 1 by mouth twice a 14tabs J02.9 [facility], 07/06/2015 - 875mg Tablets day PABLO Garza [...] Medication SIG Qnty Indications Ordering Provider Date Medroxyprogesterone Acetate, 1MG Nurse Schedule Loc 8 06/23/2017 - Use 150MG For Depo-Provera Injection Medroxyprogesterone Acetate, 1MG Kayla Gallagher NP 12/24/2016 - Use 150MG For Depo-Provera Injection Medroxyprogesterone Acetate, 1MG Nurse Schedule Loc 8 10/03/2016 - Use 150MG For Depo-Provera Injection Medroxyprogesterone Acetate, 1MG Kayla Gallagher NP 06/26/2016 - Use 150MG For Depo-Provera Injection Medroxyprogesterone Acetate, 1MG Kayla Gallagher NP 01/15/2016 - Use 150MG For Depo-Provera Injection Immunizations CPT Code Status Date Vaccine Lot # [id number] Given 03/18/2018 Tdap (Adacel) Ages 7 And Above Only [id number] Given 05/02/2015 Influenza Vac, Quadrivalent, Split, 0.5mL Dosage, Im Use 08189 Given 03/10/2008 Tdap (Adacel) Ages 7 And Above Only [id number] Given 08/11/2007 Gardasil-9 (HPV) Nonavalent 2-[place] [id number] Given 05/18/2007 Gardasil-9 (HPV) Nonavalent 2-[place] [address] Given 02/24/2007 Gardasil-9 (HPV) Nonavalent 2-[place] [id number] Refused 01/27/2018 Influenza Vac, Quadrivalent, Split, 0.5mL Dosage, Im Use 97748 Refused 10/28/2016 Afluria Or Fluvirin Flu Vac Intramuscular [id number] Refused 07/05/2016 Afluria Or Fluvirin Flu Vac Intramuscular Vital Signs Date Vital Result Comment 07/20/2018 3:53pm Body Temperature 97.7 F Weight [...] Mass Index) 40.5 kg/m2 Last Menstrual Period [id number] 0 08/25/2017 6:13pm Body Temperature 99.1 F [...] Mass Index) 39.0 kg/m2 Last Menstrual Period 5307052 0 06/18/2017 1:30pm Body Temperature 98.9 F [...] Result H/L Range Note Laboratory test [facility] 1 finding 9 [phone] [facility] <SEE NOTE> Affirm [facility] Trichomonas Negative [...] pg/mL 1.71-3.71 CBC with Auto Diff-fcmg 08/25/2017 [facility] WBC [...] Abs Basophils 0.1 K/uL 0.0-0.3 Laboratory test 08/21/2017 [facility] TSH 5.30 uIU/mL High 0.35-4.94 5 finding Arthritis 08/21/2017 [facility] Rheumatoid Factor <10.0 IU/mL 0.0-10.0 Panel-FCMG Esr 20 mm/hr 0-20 CRP-High 2.97 mg/L 0.00-9.90 6 Uric Acid 4.7 mg/dL 2.6-7.6 Rosangela Screen [facility]lex[facility] NEGAT[facility] Negative dsDNA IgG 0.80 Negative 7 Lyme Igm/Igg AB -RL 08/21/2017 [facility] Lyme Igm/Igg AB @ NEGATIVE (Neg) 8 Reflex Manual Differential 08/21/2017 [facility] Neutrophils 47 % 35-75 Band 0 % [...] Estimate NORMAL Normal RBC Morphology NORMAL Normal CBC with Auto Diff-fcmg 08/21/2017 [facility] WBC 11.2 K/uL High 4.1-11.0 RBC 4.74 M/uL 4.00-5.40 Hemoglobin 14.1 gm/dL 12.0-16.0 Hematocrit 40.9 % 36.0-47.0 MCV 86.4 fL 80.0-97.0 MCH 29.8 pg 27.0-32.0 MCHC 34.5 g/dL 32.0-36.0 RDW 13.3 % 11.5-14.5 PLT Count 294 K/ul 140-400 MPV 9.1 FL 7.1-10.7 Comprehensive Met Panel-FCMG 08/21/2017 [facility] Sodium 139 mmol/L 135- 146 9 Potassium [...] mmol/L 5-15 13 Laboratory test 07/14/2017 [facility] Urine SPECIMEN DESCRI> 14 finding [phone] Culture Laboratory test 06/26/2017 [facility] Urine Microbiology res Abnormal 15 finding Culture <SEE NOTE> Laboratory test 06/20/2017 [facility] Urine Microbiology res 16 finding Culture <SEE [...] positive Z#Ketones Urine neg Z#Glu Urine positive Laboratory test 06/18/2017 [facility] Allia 17 finding [phone] <SEE NOTE> Laboratory test 06/18/2017 [facility] Urine Culture Microbiology res 18 finding <SEE NOTE> Laboratory test 06/18/2017 [facility]path Pap SEE NOTE 19 finding GC/Chlamydia By 06/18/2017 [facility] Chlamydia by NEGATIVE Negative Dna Probe Dna Probe GC by Dna Probe NEGATIVE Negative Affirm 06/18/2017 [facility] Trichomonas Vaginalis Negative Negative Gardnerella Vaginalis Negative Negative Yeesnia Species Negative Negative Laboratory test 04/22/2017 [facility] Urine Culture Microbiology res 20 finding <SEE NOTE> Laboratory test 02/26/2017 [facility] Urine Culture Microbiology res Abnormal 21 finding <SEE NOTE> Esr 22 mm/hr High 0-20 Affirm 02/06/2017 [facility] Trichomonas Vaginalis Negative Negative Gardnerella Vaginalis Positive Abnormal Negative Yesenia Species Negative Negative Rosangela Screen With Reflex-FCMG 02/06/2017 [facility] Rosangela Screen NEGATIVE 22 dsDNA IgG 0.70 0.00-9.00 23 Ebv Evaluation -RL 02/06/2017 [facility] Ebv Vca Igg @ POSITIVE (Neg) 24, 25 Ebv Vca Igm @ NEGATIVE (Neg) Ebv Early Ag Igg @ NEGATIVE (Neg) Ebv Nuclear Ag Igg @ POSITIVE (Neg) 26 Laboratory test 12/24/2016 [facility] Throat Culture Microbiology [...] BUN 14 mg/dL 6-26 Laboratory test 09/27/2016 [facility] Free Thyroxine 1.40 ng/dL (0.76- 1.46) finding [phone] @ TSH,Ultrasensitive @ 0.286 mIU/L Low (0.360-4.170) 25 Hydroxy Vit D @ 34 ng/mL (31-100) 33 Celiac Disease Panel 08/12/2016 [facility] Celikey (tTG) IgA Negative Negative 34 Celikey (tTG) IgG Negative Negative deamidated Gliadin IgA Negative Negative deamidated Gliadin IgG Negative Negative Laboratory test 08/12/2016 [facility] CRP (C-Reactive) 0.97 mg/dL High 0.00- 0.75 finding Stool Panel 07/06/2016 [facility] Giard/Cryptosp SPECIMEN 35 [phone] Exam DESCRI> C Diff Toxin B 07/06/2016 [facility] Specimen STOOL PCR Stool [phone] Description C Diff Toxin B NEGATIVE (Neg) 027 Nap1 B1 NEGATIVE (Neg) Comment NOTE: IF REFLEX <SEE NOTE> 36 Lactoferrin,Fecal 07/06/2016 [facility] Lactoferrin, NEGATIVE (Neg) 37 [phone] Fecal Laboratory test 07/06/2016 [facility] Enteric SPECIMEN 38 finding [phone] Pathogens By DESCRI> PCR Laboratory test 07/06/2016 [facility] Crypto/Giard SPECIMEN 39 finding [phone] Antigen DESCRI> Laboratory test 07/05/2016 [facility] TSH [...] U/L 3-42 Ast 22 U/L 8-42 Laboratory test 06/26/2016 [facility] Vit D,25 25 ng/mL Low 31-100 46 finding Hydroxy Laboratory test 03/29/2016 [facility] Vit D,25 29 ng/mL Low 31-100 47 finding Hydroxy Laboratory test 10/27/2015 [facility] Urine Microbiology res Abnormal 48, 49 finding Culture <SEE NOTE> Rosangela Screen With 10/18/2015 [facility] Rosangela Screen NEGATIVE Reflex-FCMG dsDNA IgG NEGATIVE Laboratory test finding 10/18/2015 [facility] TSH 1.77 uIU/mL 0.35-4.94 Esr 5 mm/hr 0-20 CRP-High 1.01 mg/L 0.00-9.90 50 Laboratory test finding 10/18/2015 [facility] Lyme Igm/Igg AB NEGATIVE (Neg ) 51, 52 Laboratory test finding 08/15/2015 [facility] Vitamin B12 292 pg/mL 180- 914 53 Vit D,25 Hydroxy 30 ng/mL Low 31-100 Iron Panel 08/15/2015 [facility] Iron, Total 102 g/dL 50-170 Transferrin 296.6 mg/dL 203.0-362.0 Tibc (calc) 415 g/dL 261-478 % Iron Saturation 24.6 % 13.0-45.0 Laboratory test finding 08/15/2015 [facility] Folate >23.5 ng/ml 5.9-24.8 Ferritin 37.9 ng/ml 11.0-306.0 Laboratory test 08/03/2015 [facility] Throat Culture Microbiology res 54 , 55 finding <SEE NOTE> Laboratory test 07/06/2015 [facility] Throat Culture Microbiology res Abnormal 56 finding <SEE NOTE> Lipid Treatment 05/16/2015 [facility] Cholesterol 145 mg/dL 50-1 99 Triglycerides 35 mg/dL 30-200 HDL 44 mg/dL 35-85 57 Chol/ HDL Ratio 3.3 ratio Low 3.7-5.6 VLDL 7 mg/dL 2-29 LDL (Calc) 94 mg/dL 20-99 58 Alt 16 U/L 3-42 Ast 16 U/L 8-42 CBC With Auto Diff 05/02/2015 [facility] WBC 8.1 K/uL 4.1-11.0 RBC 4.65 M/uL [...] 0.0 K/uL 0.0-0.3 Comprehensive Metabolic (CMP) 05/02/2015 [facility] Sodium 136 mmol/L 134- 142 Potassium 3.8 [...] 11 mmol/L 6-14 Sachi Egfr >60 >60 59 Non Sachi Egfr >60 >60 60 Laboratory test finding 05/02/2015 [facility] TSH 1.94 uIU/mL 0.35-4.94 [facility] Pap SEE NOTE 61 Affirm 05/02/2015 [facility] Trichomonas Vaginalis Negative Negative Gardnerella Vaginalis Negative Negative Yesenia Species Negative Negative Laboratory test 05/02/2015 [facility] <SEE 62 finding [phone] NOTE> Misc 05/02/2015 [facility] Test Name [id number] Human Guillermo <SEE 63 [phone] NOTE> Result: SEE SEPARATE REP <SEE NOTE> 64 Performing Lab: [facility] <SEE NOTE> 65 GC/Chlamydia By Dna 05/02/2015 [facility] Chlamydia by Dna NEGATIVE Negative Probe Probe GC by Dna Probe NEGATIVE Negative [address] [place] [address] Amplified Molecular High Risk HPV Test Patient Name:CECE MCCULLOUGH Patient :1990 Ordering Physician:KAYLA GALLAGHER [facility] Accession Number [id number] Specimen(s) Received A: High Risk HPV SP Cervical/Endocervical Pap Smear - One Vial Other Case Numbers: [id number] Diagnosis RISK GROUPS RESULTS High Risk POSITIVE [...] tested for this assay were validated by [facility] and licensed for use by the [facility] Department of Health. This test has not been licensed by the FDA and the result is not intended to be used as the sole means for clinical diagnosis or patient management. Negative results do not rule out the presence of disease. Reported: 05/26/2018 09:52 Electronically Signed Out By Adeline Omalley [email or web address] Adrianne Santoyopol 2 [facility] [address] [place] [address] CYTOLOGY REPORT Source of Specimen(s): SurePath Cervical [...] will be issued. Processed and screened at [facility], Cytology, [address] [place] [address], [address]. Reported at [facility] at [facility], [address] [place] [address]. Reported: 05/25/2018 10:33 Electronically Signed Out By Humberto Greenberg MD [facility] Particle Board Supervisor: Dorothea Temple CT(ASCP) ICD9 Code: Z01.419 CPT code: A: MN755IDP, 88 Unless otherwise specified, testing performed by [facility] [address] [place] [address] 3 May indicate a current or previous infection. Unless otherwise specified, testing performed by [facility] [address] [place] [address] 4 Unless otherwise specified, testing performed by [facility] [address] [address] 5 PERFORM MANUAL DIFFERENTIAL 6 Recommended Cardiac [...] indicated. Unless otherwise specified, testing performed by [facility] [address] [place] [address] 9 Updated reference range on new analyzer [...] representing urethral estee. No further workup. 17 [facility] [place] [address] Amplified Molecular High Risk HPV Test Patient Name:CECE MCCULLOUGH Patient :1990 Ordering Physician:KAYLA GALLAGHER [facility] Accession Number [id number] Specimen(s) Received A: High Risk HPV SP Cervical/Endocervical Pap Smear - One Vial Other Case Numbers: [id number] Diagnosis RISK GROUPS RESULTS High Risk POSITIVE [...] tested for this assay were validated by [facility] and licensed for use by the [facility]. This test has not been licensed by the FDA and the result is not intended to be used as the sole means for clinical diagnosis or patient management. Negative results do not rule out the presence of disease. Reported: 06/27/2017 07:50 Electronically Signed Out By Adeline Omalley kings [facility] 18 Microbiology results SOURCE Clean Catch Midstream FINAL RESULT >100,000 CFU/ML Mixed urethral estee consistent with contamination. No further workup. 19 [facility]. [facility] [place] [address] CYTOLOGY REPORT Source of Specimen(s): [facility] Cervical / Endocervical Pap Smear - One Vial Date of Last Menstrual Period: None Provided Specimen Adequacy SATISFACTORY FOR EVALUATION PRESENCE OF ENDOCERVICAL/TRANSFORMATION ZONE COMPONENT General Categorization NEGATIVE FOR INTRAEPITHELIAL LESION OR MALIGNANCY Interpretation NEGATIVE FOR INTRAEPITHELIAL LESION OR MALIGNANCY Reported: 06/20/2017 08:59 Electronically Signed Out By Dorothea LOPEZ(ASCP) trav ICD9 Code: R10.9 CPT code: A: [id number] Unless otherwise specified, testing performed by [facility] [address] [address] 20 Microbiology results SOURCE Clean Catch Midstream [...] <=4 S TRIMETHOPRIM/SULFAMETHOXAZ <=2/38 S S=Sensitive;I=Indeterminate;R=Resistant 22 FAX [phone] DR. SUGGS Please send copy of results to: 23 Interpretation: <0.8 -9 Negative 10-15 Equivocal >15.[address] Sug[address] Please send copy of results to: 25 May indicate a current or previous infection. 26 May indicate a current or previous infection. Unless otherwise specified, testing performed by [facility] [place] [address] 27 Microbiology results RESULT Normal throat estee.No [...] <15 32 Updated reference range on new analyzer 33 A REVIEW OF THE LITERATURE SUGGESTS [...] CLINICALLY INDICATED, PLEASE CONTACT THE MICROBIOLOGY LABORATORY ([phone]) WITHIN 3 DAYS OF THIS REPORT. 37 PERFORMED AT [address] [place] [address] 38 SPECIMEN DESCRIPTION STOOL SPECIAL REQUESTS NONE [...] TO CONTINUED BACKORDER OF THE ANTIGEN TEST, [facility] IS DISCONTINUING THIS ASSAY. PLEASE [...] <=4 S TRIMETHOPRIM/SULFAMETHOXAZ <=2/38 S S=Sensitive;I=Indeterminate;R=Resistant 50 Recommended Cardiac Risk Assessment: Low < 1.0 mg/L Average 1.0 - 3.0 mg/L High > 3.0 mg/L 51 This sample is drawn by:byron 52 A Negative serologic test for Lyme Disease indicates no serologic evidence of infection with B burgdorferi at the time this specimen was collected. A repeat specimen should be collected in 2 to 4 weeks if clinically indicated. Unless otherwise specified, testing performed by [facility] [address] [address] 53 This sample is drawn by:uma 54 This sample is drawn by:BYRON 55 Microbiology results RESULT Normal throat estee.No beta hemolytic streptococci isolated. 56 Microbiology results RESULT Beta Strep Not Group A Isolated 57 Per NCEP ATP III Guidelines: Results lower than 40 mg/dL are suggestive of increased risk for coronary artery disease. Results > or=to 60 mg/dL are considered a negative risk factor. 58 Per NCEP ATP III Guidelines: Normal Population <130 Patients with medical conditions: CHD/DM Optimal: <100 Borderline high: 130-159 High: 160-189 Very high: >189 59 Concerning GFR Guidelines for Americans: Normal function or mild renal disease, if clinically at risk: >/=60 mL/min Moderately decreased: 30-59 Severely decreased: 15-29 Renal failure: <15 60 Concerning GFR Guidelines: Normal function or mild [...] drugs that are excreted by the kidneys. 61 LABORATORY [facility]. [facility] [place] [address] GYNECOLOGIC CYTOLOGY REPORT Accession Number: [id number] Source of Specimen(s): A: [facility] Cervical / Endocervical Pap Smear - One Vial Clinical Diagnosis and History: Date of Last Menstrual Period: None Provided Specimen Adequacy Satisfactory for evaluation Presence of endocervical/transformation zone component General Categorization Negative for intraepithelial lesion or malignancy Interpretation NEGATIVE FOR INTRAEPITHELIAL LESION OR MALIGNANCY Acute inflammatory cells Reported: 05/04/2015 Electronically Signed Out By Estephania LOPEZ(ASCP) [facility] dol Unless otherwise specified, testing performed by Laboratory [address] [address] [address] [address] Amplified Molecular High Risk HPV Test Patient Name:CECE MCCULLOUGH Patient :1990 Ordering Physician:KAYLA GALLAGHER [facility] Accession Number [id number] Specimen(s) Received A: High Risk HPV SP Cervical/Endocervical Pap Smear - One Vial Other Case Numbers: [id number] Diagnosis HPV testing will be performed and results will be issued in a separate report. [facility] Reported: 07/17/2017 14:07 Electronically Signed Out By Yanci Garcia MS,SCT(ASCP)(IAC) [facility] 63 [id number] Human Papillomavirus (HPV), High Risk by Hybrid Capture, SurePath SOURCE: CERVICAL/ ENDOCERVICAL 64 SEE SEPARATE REPORT 65 [facility] [address] [place] [address] Procedures Date Code Description Status 12/31/2016 24939 Tympanometry Completed 12/24/2016 78715 Admin Of Inj (Therapeutic Phrophylactic Or Diagnostic Completed Subq Inj 12/24/2016 06351 Electrocardiogram Complete Completed 10/03/2016 97331 Admin Of Inj (Therapeutic Phrophylactic Or Diagnostic Completed Subq Inj 08/13/2016 [id number] Colonoscopy Completed 07/24/2016 [id number] Colonoscopy Completed 07/22/2016 [id number] Colonoscopy Completed 06/26/2016 88181 Admin Of Inj (Therapeutic Phrophylactic Or Diagnostic Completed Subq Inj 01/15/2016 24149 Admin Of Inj (Therapeutic Phrophylactic Or Diagnostic Completed Subq Inj Encounters Type Date Location Provider Dx Diagnosis Office Visit 05/20/2018 Kayla Smith, Z01.419 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 3:30p [facility] (general) (routine) w/o abn findings K64.5 Perianal venous thrombosis Z68.41 Body mass index (BMI) 40.0-44.9, adult Office Visit 03/18/2018 3:30p Kayla Smith, PABLO H65.23 Chronic serous otitis media, bilateral Z23 Encounter for immunization Z68.41 Body mass index (BMI) 40.0-44.9, adult Office Visit 01/27/2018 3:45p Kayla Smith NP H62.42 Otitis externa in oth diseases classd elswhr, LEFT ear H66.92 Otitis media, unspecified, LEFT ear Z68.41 Body mass index (BMI) 40.0-44.9, adult Office Visit 10/24/2017 11:00a Paula Gallagher F33.1 Major depressive PABLO Garza disorder, recurrent, moderate Office Visit 10/08/2017 4:00p Jackie Hanson, R10.2 Pelvic and Betty Duncan M.D. perineal pain N92.6 Irregular menstruation, unspecified N94.6 Dysmenorrhea, unspecified Z30.09 Encounter for oth general coun and advice on contraception Office Visit 10/08/2017 12:00p Yair Smith MD M12.80 Oth specific arthropathies, [facility], [facility] R53.83 Other fatigue E66.9 Obesity, unspecified Z68.41 Body mass index (BMI) 40.0-44.9, adult E03.9 Hypothyroidism, unspecified Office Visit 08/25/2017 6:15p Kayla Smith NP R53.83 Other fatigue M12.80 Oth specific arthropathies, [facility], [facility] Z68.38 Body mass index (BMI) 38.0-38.9, adult E03.9 Hypothyroidism, unspecified Office Visit 08/21/2017 6:45p Yair Smith MD G47.33 Obstructive sleep apnea (adult) (pediatric) R53.83 Other fatigue M12.80 Oth specific arthropathies, [facility], [facility] Z68.38 Body mass index (BMI) 38.0-38.9, [...] Insomnia, unspecified Office Visit 03/26/2017 3:00p Kayla Smith Z30.9 Encounter for [facility] contraceptive management, unspecified Office Visit 02/26/2017 2:00p Kayla Smith, N92.1 Excessive and frequent [facility] [place] menstruation with irregular cycle N30.01 Acute cystitis with hematuria Office Visit 02/06/2017 11:30a Kayla Smith, B35.9 Dermatophytosis, [facility] unspecified J31.2 Chronic pharyngitis R10.9 Unspecified abdominal pain N76.0 Acute vaginitis Office Visit 12/31/2016 8:30a Arnaldo Awad, Arnaldo Awad, J35.1 Hypertrophy of [place] tonsils H69.93 Unspecified Eustachian tube disorder, bilateral H65.32 Chronic mucoid otitis media, LEFT ear Office Visit 12/24/2016 10:00a Kayla Smith, J02.9 Acute pharyngitis, [place] [place] unspecified N92.6 Irregular menstruation, unspecified R55 Syncope and collapse Office Visit 10/28/2016 4:45p Kayla Smith NP F33.1 Major depressive disorder, recurrent, moderate F41.9 Anxiety disorder, unspecified Office Visit 10/14/2016 4:45p Kayla Smith NP F33.1 Major depressive disorder, recurrent, moderate F41.9 Anxiety disorder, unspecified Office Visit 09/30/2016 6:45p Kayla Smith NP E55.9 Vitamin D deficiency, unspecified F33.1 Major depressive disorder, recurrent, moderate Z79.899 Other long-term (current) drug therapy Office Visit 09/27/2016 4:30p [...] Diarrhea, unspecified Office Visit 07/15/2016 1:45p Kayla Smith NP R10.9 Unspecified abdominal pain F41.9 Anxiety disorder, unspecified Office Visit 07/06/2016 10:30a Kayla Smith NP R10.9 Unspecified abdominal pain Office Visit 07/05/2016 11:45a Kayla Smith NP R10.9 Unspecified abdominal pain Office Visit 07/01/2016 6:45p Kayla Smith NP F41.9 Anxiety disorder, unspecified Z79.899 Other long-term (current) drug therapy Office Visit 06/26/2016 4:30p Kayla Smith NP F41.9 Anxiety disorder, unspecified F33.1 Major depressive disorder, recurrent, moderate Z30.9 Encounter for contraceptive management, unspecified Office Visit 06/26/2016 2:00p Lesley Self MD E55.9 Vitamin D deficiency, unspecified Office Visit 04/29/2016 6:45p Kayla Smith, F41.9 Anxiety disorder, [facility] unspecified F33.1 Major depressive disorder, recurrent, moderate [...] recurrent, moderate Office Visit 02/07/2016 4:30p Kayla Smith NP M54.6 Pain in thoracic spine M54.5 Low back pain Office Visit 01/15/2016 4:15p Kayla Smith NP F41.9 Anxiety disorder, unspecified F33.1 Major depressive disorder, recurrent, moderate Z30.9 Encounter for contraceptive management, unspecified Office Visit 11/16/2015 4:30p Kayla Smith NP F41.9 Anxiety disorder, unspecified F33.1 Major depressive disorder, recurrent, moderate Office Visit 10/27/2015 4:00p Kayla Smith, [facility] N30.00 Acute cystitis without hematuria N30.01 Acute cystitis with hematuria Office Visit 10/18/2015 1:30p Kayla Smith, R53.82 Chronic fatigue, [facility] unspecified Office Visit 08/15/2015 12:00p Kayla Smith, F41.9 Anxiety disorder, [facility] unspecified R53.82 Chronic fatigue, unspecified J02.9 Acute pharyngitis, unspecified Office Visit 08/03/2015 11:30a Kayla Smith, [facility] F41.9 Anxiety disorder, unspecified J02.9 Acute pharyngitis, unspecified K12.30 Oral mucositis (ulcerative), unspecified Office Visit 07/06/2015 11:00a Kayla Smith, J02.9 Acute pharyngitis, [facility] unspecified Office Visit 07/04/2015 10:45a Kayla Smith, F41.9 Anxiety disorder, [facility] unspecified F33.1 Major depressive disorder, recurrent, moderate J30.1 Allergic rhinitis due to pollen Office Visit 06/13/2015 11:30a Kayla Smith, [facility] F41.9 Anxiety disorder, unspecified F33.1 Major depressive disorder, recurrent, moderate H65.03 Acute serous otitis media, bilateral Office Visit 05/30/2015 11:30a Kayla Smith, F41.9 Anxiety disorder, [place] unspecified Office Visit 05/16/2015 11:30a Kayla Smith, F41.9 Anxiety disorder, [facility] unspecified Office Visit 05/02/2015 12:00p Kayla Smith, Z00.01 Encounter for general [facility] adult medical exam w abnormal findings F41.9 Anxiety disorder, unspecified F33.1 Major depressive disorder, recurrent, moderate Z23 Encounter for immunization Z11.3 Encntr screen for infections w sexl mode of transmiss Plan of Treatment Future Appointment(s):08/14/2018 4:00 pm - Kayla Gallagher NP at [facility]2018 2:30 pm - Betty Hanson M.D. at [facility]07/20/2018 - Yair Gallagher MDE66.01 Morbid (severe) obesity due to excess caloriesComments: CONTINUE WORKING ON DIET AND EXERCISE RECOMMEND WEIGHT WATCHERS AND OFFERED AN APPOINTMENT WITH OUR NITRITIONIST. PATIENT WILL CALL FOR THIS APPT.Follow up: Followup:.J45.40 Moderate persistent asthma, uncomplicatedNew Medication: Albuterol Sulfate HFA 108(90 Base) mcg/Act - 2 puffs every 4 hours as neededFollow up:Followup:.Z68.41 Body mass index (BMI) 40.0-44.9, adultAllFollow up:COMPLETE PHYSICAL EXAM
== END 2018-08-16 20:05 | disposition left against medical advice (07) ==
LOC: UCCORT 19:19
DX: S69.91XA Unspecified injury of right wrist, hand and finger(s), initial encounter (principal); W55.01XA Bitten by cat, initial encounter; Y92.9 Unspecified place or not applicable; Z53.21 Procedure and treatment not carried out due to patient leaving prior to being seen by health care provider

== ENCOUNTER 2019-05-24 07:33 | Emergency (ER) | payer SELFPAY ==
[2019-05-24 07:48] VITALS: BP 108/69
--- NOTE | 2019-05-24 08:29 | ED ---
GI/ HPI - HPI Summary HPI Summary: 29yo WF p/w urinary frequency,urgency and dysuria associated with f/c x few days , worsening, denies hematuria - History of Current Complaint Chief Complaint: UCGU Time Seen by Provider: 05/24/19 08:01 Stated Complaint: URINARY Hx Obtained From: Patient Hx Last Menstrual Period: 05/19/19 Onset/Duration: Started Days Ago Timing: Lasting Days Severity: Moderate Current Severity: Moderate Pain Intensity: 4 - Allergy/Home Medications Allergies/Adverse Reactions: Allergies Allergy/AdvReac Type Severity Reaction Status Date / Time No Known Allergies Allergy Verified 05/24/19 07:39 Home Medications: Home Medications buPROPion HCl [Bupropion Xl] 450 mg PO DAILY 06/23/18 [History Confirmed ] FLUoxetine CAP* [Prozac CAP*] 20 mg PO DAILY 05/24/19 [History Confirmed ] Naproxen Sodium [Aleve] 220 mg PO PRN 05/24/19 [History] cefUROXime axetiL [Cefuroxime] 500 mg PO BID 10 Days #20 tablet 05/24/19 [Rx] PMH/Surg Hx/FS Hx/Imm Hx Previously Healthy: Yes Respiratory History: Reports: Hx Asthma Infectious Disease History: No Infectious Disease History: Denies: Traveled Outside the [place] in Last 30 Days - Family History Known Family History: Positive: Hypertension, Non-Contributory - Social History Alcohol Use: None Substance Use Type: Reports: None Smoking Status (MU): Never Smoked Tobacco Review of Systems Constitutional: Negative Eyes: Negative ENT: Negative Cardiovascular: Negative Respiratory: Negative Gastrointestinal: Negative Positive: no symptoms reported, dysuria, frequency, urgency Musculoskeletal: Negative Skin: Negative Neurological/Mental Status: Negative Psychological: Normal All Other Systems Reviewed And Are Negative: Yes Physical Exam - Summary Physical Exam Summary: Vital Signs Reviewed: Yes Appearance: Positive: No Pain Distress Skin: Positive: Warm Head/Face: Positive: Normal Head/Face Inspection Eyes: Positive: Normal ENT: Positive: Normal ENT inspection Dental: Negative: Cervical Lymphadenopathy Neck: Positive: Supple Respiratory/Lung Sounds: Positive: Clear to Auscultation Cardiovascular: Positive: Normal, RRR, S1, S2 Abdomen Description: Positive: Nontender Musculoskeletal: Positive:B/L CVAT Neurological: Positive: Normal Psychiatric: Positive: Normal Vital Signs On Initial Exam: Initial Vitals Temp Pulse Resp BP Pulse Ox 36.6 C 99 16 108/69 100 05/24/19 07:42 05/24/19 07:42 05/24/19 07:42 05/24/19 07:42 05/24/19 07:42 Diagnostics - Vital Signs Vital Signs Temp Pulse Resp BP Pulse Ox 05/24/19 07:42 36.6 C 99 16 108/69 100 - Laboratory Lab Results: Lab Results 05/24/19 Range/Units 08:14 POC Urine Color Yellow POC Urine Clarity Clear POC Urine pH 5.5 (5-9) POC Ur Specif [place] 1.020 (1.010-1.030) POC Urine Protein Negative (Negative) POC Ur Glucose (UA) Negative (Negative) POC Urine Ketones Negative (Negative) POC Urine Blood 2+ A (Negative) POC Urine Nitrite Negative (Negative) POC Urine Bilirubin Negative (Negative) POC Urine Urobilinogen 0.2 (Negative) POC U Leukocyte Esteras 2+ A (Negative) Lab Statement: Any lab studies that have been ordered have been reviewed, and results considered in the medical decision making process. GIGU Course/Dx - Course Assessment/Plan: UA positive for LW and blood, will tx for acute cystitis and possible ascending pyelo - Diagnoses Provider Diagnoses: Acute cystitis Discharge ED - Sign-Out/Discharge Documenting (check all that apply): Patient Departure All imaging exams completed and their final reports reviewed: No Studies - Discharge Plan Condition: Stable Disposition: HOME Prescriptions: cefUROXime axetiL [Cefuroxime] 500 mg PO BID 10 Days #20 tablet Patient Education Materials: Urinary Tract Infection in Women (ED) Referrals: Whitney Gallagher NP [Primary Care Provider] - - Billing Disposition and Condition Condition: STABLE Disposition: Home
== END 2019-05-24 08:43 | disposition home or self-care (01) ==
LOC: UCCORT 07:33
DX: N30.00 Acute cystitis without hematuria (principal); J45.909 Unspecified asthma, uncomplicated
CPT/HCPCS: 81003; 84702; 87077; 87086; 87186; 99211; G0463